=== PATIENT | female | born 1945 | race Caucasian/White ===

== ENCOUNTER 2019-07-28 11:34 | Inpatient (IN) | payer MEDICARE, OTHER ==
[~2019-07-28] VITALS: Ht 165.1 cm; Wt 71.2 kg
--- OUTSIDE RECORDS SUMMARY | ~2019-07-28 | XMS | Clinical Summary ---
Demographics + + + | Address | [address] | | | [place] [address] | + + + | Home Phone | | + + + | Preferred Language | Unknown | + + + | Marital Status | | + + + | Congregation Affiliation | 1077 | + + + | Race | Unknown | + + + | Ethnic Group | Unknown | + + + Author + + + | Author | [facility] (Historical as of | | | 05-25-19) | + + + | Organization | [facility] (Historical as of | | | 05-25-19) | + + + | Address | Unknown | + + + | Phone | Unavailable | + + + Support + + + + + | Name | Relationship | Address | Phone | + + + + + | Reinaldo An | ECON | [address] | | | | | [place] | | | | | [address] | | + + + + + | Radha Diaz | ECON | Unknown | | + + + + + Care Team Providers + +------+ + | Care Boarding Machine Operator Name | Role | Phone | + +------+ + | Jorge Alberto London DO | PP | | + +------+ + Allergies + + + + + + | Active Allergy | Reactions | Severity | Noted | Comments | | | | | Date | | + + + + + + | Alendronate | Other (See Comments) | Medium | 12/11/19 | Muscle aches and | | | | | 14 | weakness bone pain | + + + + + + | Erythromycin | Rash | Medium | 08/23/20 | | | | | | 17 | | + + + + + + | Lisinopril | Other (See Comments) | Medium | 01/07/20 | Unknown reaction | | | | | 12 | | + + + + + + | Lovastatin | Other (See Comments) | Medium | 01/07/20 | Unknown reactions, | | | | | 12 | Takes pravastatin | | | | | | at home | + + + + + + | Penicillins | Other (See Comments) | High | 01/07/20 | Unknown reaction | | | | | 12 | 10/19/17 patient | | | | | | tolerates cefazolin | + + + + + + | Beclomethasone | Shortness of Breath | High | 11/19/19 | | | | | | 15 | | + + + + + + | Tiotropium Newman | Anaphylaxis | High | 12/11/19 | | | Monohydrate | | | 14 | | + + + + + + | Budesonide-Formotero | Anaphylaxis | High | 12/11/19 | | | l Fumarate | | | 14 | | + + + + + + Current Medications + + +--------+---------+------+------+-------+ | Prescription | Sig. | Disp. | Refills | Star | End | Statu | | | | | | t | Date | s | | | | | | Date | | | + + +--------+---------+------+------+-------+ | travoprost | Place 1 drop into | | | | | Activ | | (TRAVATAN) 0.004 % | the right eye | | | | | e | | ophthalmic solution | nightly. | | | | | | + + +--------+---------+------+------+-------+ | levothyroxine | Take 100 mcg by | | | | | Activ | | (SYNTHROID, | mouth daily. | | | | | e | | LEVOTHROID) 100 MCG | | | | | | | | tablet | | | | | | | + + +--------+---------+------+------+-------+ | aspirin 81 MG EC | Take 81 mg by mouth | | | | | Activ | | tablet | daily with | | | | | e | | | breakfast. | | | | | | + + +--------+---------+------+------+-------+ | Multiple Vitamin | Take 1 tablet by | | | | | Activ | | (MULTIVITAMIN) | mouth daily. | | | | | e | | tablet | | | | | | | + + +--------+---------+------+------+-------+ | albuterol (PROAIR | Inhale 2 puffs into | | | | | Activ | | HFA) 108 (90 BASE) | the lungs every 4 | | | | | e | | MCG/ACT inhaler | (four) hours as | | | | | | | | needed. | | | | | | + + +--------+---------+------+------+-------+ | acetaminophen | Take 500 mg by mouth | | | | | Activ | | (TYLENOL) 500 MG | every 6 (six) hours | | | | | e | | tablet | as needed. | | | | | | + + +--------+---------+------+------+-------+ | albuterol | Take 2.5 mg by | | | | | Activ | | (PROVENTIL) (2.5 | nebulization every 6 | | | | | e | | MG/3ML) 0.083% | (six) hours as | | | | | | | nebulizer solution | needed for Wheezing. | | | | | | + + +--------+---------+------+------+-------+ | fluticasone | Inhale 1 puff into | | | | | Activ | | (FLOVENT HFA) 220 | the lungs 2 (two) | | | | | e | | MCG/ACT inhaler | times daily. Rinse | | | | | | | | mouth after use | | | | | | + + +--------+---------+------+------+-------+ | triamcinolone | Apply 0.1 % | | | | | Activ | | (KENALOG) 0.5 % | topically as needed. | | | | | e | | cream | | | | | | | + + +--------+---------+------+------+-------+ | pseudoephedrine | Take 30 mg by mouth | | | | | Activ | | (SUDAFED) 30 MG | every 6 (six) hours | | | | | e | | tablet | as needed for | | | | | | | | Congestion. | | | | | | + + +--------+---------+------+------+-------+ | Cholecalciferol | Take 1,000 Units by | | | | | Activ | | 1000 UNITS capsule | mouth daily. | | | | | e | + + +--------+---------+------+------+-------+ | estradiol | Place 2 mg vaginally | | | | | Activ | | (ESTRING) 2 MG | every 3 (three) | | | | | e | | vaginal ring | months. follow | | | | | | | | package directions | | | | | | + + +--------+---------+------+------+-------+ | Garlic 1000 MG | Take 2,000 mg by | | | | | Activ | | CAPS | mouth. | | | | | e | + + +--------+---------+------+------+-------+ | Coenzyme Q10 100 | Take 100 mg by mouth | | | | | Activ | | MG TABS | daily. | | | | | e | + + +--------+---------+------+------+-------+ | diphenhydrAMINE | Take 25 mg by mouth | | | | | Activ | | (BENADRYL) 25 mg | every 6 (six) hours | | | | | e | | capsule | as needed for | | | | | | | | Itching. | | | | | | + + +--------+---------+------+------+-------+ | ferrous sulfate, | Take 65 mg of iron | | | | | Activ | | 65 FE, 324 (65 Fe) | by mouth daily with | | | | | e | | MG EC tablet | breakfast. | | | | | | + + +--------+---------+------+------+-------+ | guaifenesin | Take 1,200 mg by | | | | | Activ | | (MUCINEX MAX) 1200 | mouth as needed. | | | | | e | | MG 12hr tablet | | | | | | | + + +--------+---------+------+------+-------+ | losartan (COZAAR) | Take 1 tablet by | 90 | 1 | 11/2 | | Activ | | 100 MG tablet | mouth daily for 60 | tablet | | 4/20 | | e | | | days. | | | 18 | | | + + +--------+---------+------+------+-------+ | amLODIPine | Take 1 tablet by | 30 | 2 | 11/2 | 11/2 | Activ | | (NORVASC) 10 MG | mouth daily. | tablet | | 5/20 | 5/20 | e | | tablet | | | | 18 | 19 | | + + +--------+---------+------+------+-------+ | | Take 1 tablet by | 21 | 0 | 11/2 | | Activ | | oxyCODONE-acetaminop | mouth every 4 (four) | tablet | | 4/20 | | e | | hen (PERCOCET) 5-325 | hours as needed for | | | 18 | | | | MG per tablet | Pain. | | | | | | + + +--------+---------+------+------+-------+ | TRAVATAN Z 0.004 % | | | | 10/2 | | Activ | | ophthalmic solution | | | | 06/28 | | e | | | | | | 18 | | | + + +--------+---------+------+------+-------+ | metoprolol | Take 1 tablet by | 90 | 2 | 11/09 | | Activ | | (TOPROL-XL) 50 MG 24 | mouth daily. | tablet | | 4/20 | | e | | hr tablet | | | | 19 | | | + + +--------+---------+------+------+-------+ | isosorbide | Take 1 tablet by | 90 | 3 | /1 | 04 | Activ | | mononitrate (IMDUR) | mouth daily. | tablet | | 6/20 | 5/20 | e | | 30 MG 24 hr tablet | | | | 19 | 20 | | + + +--------+---------+------+------+-------+ | clopidogrel | TAKE 1 TABLET BY | 90 | 3 | 05/0 | | Activ | | (PLAVIX) 75 MG | MOUTH ONCE DAILY | tablet | | 1/20 | | e | | tablet | | | | 19 | | | + + +--------+---------+------+------+-------+ | | TAKE 1 TABLET BY | 90 | 3 | 05/3 | | Activ | | hydrochlorothiazide | MOUTH ONCE DAILY | tablet | | 0/20 | | e | | (HYDRODIURIL) 12.5 | | | | 19 | | | | MG tablet | | | | | | | + + +--------+---------+------+------+-------+ | pravastatin | TAKE 1 TABLET BY | 90 | 3 | 06/0 | | Activ | | (PRAVACHOL) 20 MG | MOUTH ONCE NIGHTLY | tablet | | 5/20 | | e | | tablet | | | | 19 | | | + + +--------+---------+------+------+-------+ Active Problems + + + | Problem | Noted Date | + + + | TIA (transient ischemic attack) | 08/27/2018 | + + + | Acquired hypothyroidism | 10/20/2017 | + + + | 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) | 10/20/2017 | + + + | Coronary artery disease involving hoh coronary artery of | 10/17/2017 | | hoh heart without angina pectoris | | + + + + + | Overview: Added automatically from request for surgery [id number] | + + + + + | Carotid stenosis | 02/09/2016 | + + + | Peripheral vascular disease (HCC) | 12/25/2013 | + + + | Aorto-iliac atherosclerosis (HCC) | 12/25/2013 | + + + | Anemia of other chronic disease | 01/17/2012 | + + + | Microscopic hematuria | 01/07/2012 | + + + | Hypertension | | + + + | Hyperlipidemia | | + + + | Thyroid disease | | + + + | Glaucoma | | + + + | COPD (chronic obstructive pulmonary disease) | | + + + | Old myocardial infarction | | + + + | APURVA on CPAP | | + + + Resolved Problems + + + + | Problem | Noted | Resolved | | | Date | Date | + + + + | Hyponatremia | 08/31/20 | | | | 18 | 9 | + + + + | Abnormal stress test | 12/26/19 | | | | 14 | 8 | + + + + | Hypoxemia | 01/15/20 | | | | 12 | 7 | + + + + | ARDS (adult respiratory distress syndrome) | 01/07/20 | | | | 12 | 7 | + + + + | Acute respiratory failure (HCC) | 01/07/20 | | | | 12 | 2 | + + + + | Hyperkalemia | 01/07/20 | | | | 12 | 6 | + + + + | Leukocytosis, unspecified | 01/07/20 | | | | 12 | 7 | + + + + | Elevated liver enzymes | 01/07/20 | | | | 12 | 7 | + + + + Immunizations + + + + | Name | Dates Previously Given | Next Due | + + + + | INFLUENZA PF, | 07/23/2015 | | | QUADRIVALENT | | | | (PED/ADOL/ADULT) | | | + + + + | INFLUENZA, PF | 07/24/2017, 07/25/2016 | | | TRIVALENT HIGH DOSE | | | | 65 YRS OR > | | | + + + + | Influenza, PF | 06/23/2014, 07/23/2013 | | | Recombinant, | | | | Trivalent (Flublok) | | | + + + + | Influenza, PF | 06/23/2014, 07/23/2013 | | | Trivalent | | | + + + + | Pneumococcal | 07/23/2015 | | | Conjugate 13-valent | | | + + + + | Pneumococcal | 10/09/2010 | | | Polysaccharide | | | | 23-valent | | | + + + + | Tdap | 06/23/2014 | | + + + + Family History + + +------+ + | Medical History | Relation | Name | Comments | + + +------+ + | Cancer | Father | | | + + +------+ + | Hypertension | Father | | | + + +------+ + | Heart disease | Mother | | | + + +------+ + | Hypertension | Mother | | | + + +------+ + | Heart disease | Sister | | | + + +------+ + | Malig hypertherm | Neg Hx | | | + + +------+ + + +------+ + + | Relation | Name | Status | Comments | + +------+ + + | Father | | | | + +------+ + + | Mother | | | | + +------+ + + | Sister | | Alive | | + +------+ + + Social History + + + +--------+ + | Tobacco Use | Types | Packs/Day | Years | Date | | | | | Used | | + + + +--------+ + | Former Smoker | Cigarettes | 1 | 40 | Quit: 01/01/2012 | + + + +--------+ + + +---+---+---+ | Smokeless Tobacco: | | | | | Former User | | | | + +---+---+---+ + + +---------+ + | Alcohol Use | Drinks/We | oz/Week | Comments | | | ek | | | + + +---------+ + | No | | | rarely | + + +---------+ + + + + | Sex Assigned at | Date Recorded | | | | + + + | Not on file | | + + + Last Filed Vital Signs + + + + | Vital Sign | Reading | Time Taken | + + + + | Blood Pressure | 176/76 | 03/20/2019 12:54 PM PDT | + + + + | Pulse | 63 | 03/20/2019 12:54 PM PDT | + + + + | Temperature | 36.7 C (98 F) | 09/01/2018 7:48 AM PST | + + + + | Respiratory Rate | 20 | 09/01/2018 7:48 AM PST | + + + + | Oxygen Saturation | 97% | 03/20/2019 12:54 PM PDT | + + + + | Inhaled Oxygen | - | - | | Concentration | | | + + + + | Weight | 72.3 kg (159 lb 6.4 | 01/22/2019 2:05 PM PDT | | | oz) | | + + + + | Height | 165.1 cm (5' 5") | 01/22/2019 2:05 PM PDT | + + + + | Body Mass Index | 26.53 | 01/22/2019 2:05 PM PDT | + + + + Plan of Treatment + + + + + | Health Maintenance | Due Date | Last Done | Comments | + + + + + | Breast Cancer | | | | | Screening | 5 | | | | (Mammogram) | | | | + + + + + | Colon Cancer | | | | | Screening | 5 | | | | (Colonoscopy) | | | | + + + + + | Vaccine: Zoster (1 | | | | | of 2) | 5 | | | + + + + + | DEXA SCAN SCREENING | | | | | | 0 | | | + + + + + | Lung Cancer | | 01/06/2012 | | | Screening | 3 | | | + + + + + | Vaccine: Influenza | | 07/24/2017, 07/25/2016, | | | (#1) | 9 | 07/23/2015, Additional history | | | | | exists | | + + + + + | Vaccine: | | 06/23/2014 | | | Dtap/Tdap/Td (2 - | 4 | | | | Td) | | | | + + + + + | Vaccine: | Completed | 07/23/2015, 10/09/2010 | | | Pneumococcal 65+ | | | | | Low/Medium Risk | | | | + + + + + Implants + +------+------+ +--------+--------+--------+ | Implanted | Type | Area | Manufacture | Device | Expira | Model | | | | | r | | tion | / | | | | | | Identi | Date | Serial | | | | | | fier | | / Lot | + +------+------+ +--------+--------+--------+ | Xgrft Vascu-Guard [facility] 0.8x8 | | | MONIKA | | 02/14/ | VG-[id number] | | - [id number]: Qty: 1 | | | BIOSCIENCE | | 3 | 8N / | | on 08/28/2018 by Delon Bey | | | - EDDA | | | /[id number] | | MD Chun | | | | | | 22-132 | | | | | | | | [phone] | + +------+------+ +--------+--------+--------+ Results Not on filefrom Last 3 Months Insurance + +--------+ +------+-------+ + | Payer | Benefi | Subscriber | Type | Phone | Address | | | t Plan | ID | | | | | | / | | | | | | | Group | | | | | + +--------+ +------+-------+ + | MEDICARE | MEDICA | [id number] | | | [address] | | | RE | | | | [place], [place] [address] | | | IP-OP | | | | | + +--------+ +------+-------+ + | COMMERCIAL OTHER | COMMER | [id number] | | | | | | CIAL | | | | | | | GENERI | | | | | | | C PLAN | | | | | + +--------+ +------+-------+ + + +--------+ +--------+ + + | Guarantor Name | Accoun | Relation to | Date | Phone | Billing Address | | | t Type | Patient | of | | | | | | | | | | + +--------+ +--------+ + + | ODALIS AN | Person | Self [birth year] | Home: | [address] | | | al/Fam | | 1945 | [phone] [place] | | | [place] | | [phone] | + +--------+ +--------+ + +
--- OUTSIDE RECORDS SUMMARY | ~2019-07-28 | XMS | Encounter Summary ---
Demographics + + + | Address | [address] | | | [place] [address] | + + + | Home Phone | | + + + | Preferred Language | Unknown | + + + | Marital Status | | + + + | Yazdanism Affiliation | Unknown | + + + | Race | White | + + + | Ethnic Group | Not or | + + + Author + + + | Author | [facility] | + + + | Organization | [facility] | + + + | Address | Unknown | + + + | Phone | Unavailable | + + + Support + + +---------+ + | Name | Relationship | Address | Phone | + + +---------+ + | Reinaldo Wynne | ECON | Unknown | | + + +---------+ + | None None | ECON | Unknown | Unavailable | + + +---------+ + Care Team Providers + +------+ + | Care Sample Case Porter Name | Role | Phone | + +------+ + PCP | Unavailable | + +------+ + Encounter Details +--------+ + + + + | Date | Type | Department | Care Team | Description | +--------+ + + + + | 04/06/ | Staff Occupational Therapist | [facility] | Daniel Carbajal | | | 2005 | | [facility] | G | | | | | [address] | | | | | | [address] | | | | | | Mailcode: [place] | | | | | | [place], [place] | | | | | | [address] | | | | | | [phone] | | | +--------+ + + + + Social History + +-------+ +--------+------+ | Tobacco Use | Types | Packs/Day | Years | Date | | | | | Used | | + +-------+ +--------+------+ | Never Assessed | | | | | + +-------+ +--------+------+ + + + | Sex Assigned at | Date Recorded | | | | + + + | Not on file | | + + + + + + + | Job Start Date | Occupation | Industry | + + + + | Not on file | Not on file | Not on file | + + + + + + + + | Travel History | Travel Start | Travel End | + + + + + + | No recent travel history available. | + + documented as of this encounter Plan of Treatment Not on filedocumented as of this encounter Visit Diagnoses Not on filedocumented in this encounter"
--- OUTSIDE RECORDS SUMMARY | ~2019-07-28 | XMS | Encounter Summary ---
Demographics + + + | Address | [address] | | | [place] [address] | + + + | Home Phone | | + + + | Preferred Language | Unknown | + + + | Marital Status | | + + + | Episcopalian Affiliation | Unknown | + + + | Race | White | + + + | Ethnic Group | Not or | + + + Author + + + | Author | [facility] | + + + | Organization | [facility] | + + + | Address [...] Team Providers + +------+ + | Care Cinder Snapper Name | Role | Phone | + +------+ + PCP | Unavailable | + +------+ + Reason for Visit + + + | Reason | Comments | + + + | Postoperative visit | | + + + Encounter Details +--------+---------+ + + + | Date | Type | Department | Care Team | Description | +--------+---------+ + + + | 04/07/ | Office | [facility] | Elie Truong | Macular Cyst, Hole, | | 2005 | Visit | [facility] at | [address] | or Pseudohole of | | | | [address] | [facility], | Retina (Primary Dx) | | | | [address] | [place] [address] | | | | | Mailcode: [facility] | [phone] | | | | | [place], [place] | | | | | | [address] | | | | | | [phone] | | | +--------+---------+ + + + Social History + +-------+ [...] + + documented as of this encounter Progress Notes Alvina Francisco - 04/07/2006 8:17 AM PDTBeverly Sanjiv Wynne is a 60 y.o female s/p ppv/mp/14% sf6 OS 04/06/06 pt states no signiof pain-took only 1 vicodin. ate/slept well. presented with patch and s hield--removed. +head down positioning. brought in PF/ocuflox. disp atropine--review and disp instructions. VAsc LE CF@2' LE 23 myd@8.10 External: ecchymosis and swelling Slit lamp examination: Conj: closed Cornea: 1+ edema AC: mild cell and flare, well-formed Lens: Phakic Dilated Fundus Exam: Disc: perfused Macula: attached Vessels: normal Periphery: attatched and 70% gas fill Vitreous: avitric IMP: Doing well at 1 day postop. visit, ppv/mp/gas right eye retina attached; no elevated IOP or hypotony PLAN: Post operative Medications left eye: Prednisolone Acetate 1% ophth sups 4 x/day Atropine 2 x/day Vigamox 4 x/day Vicodin q 4-6hr prn pain Eyeshield at night for 1 wk. No strenuous activity for 1 wk Positioning: face down Do not lie on back Do not get in airplane or travel above 2000ft Return to clinic in 1 wk(s). Call immediately for increased pain, redness, light sensitivity or reduced vision. Post op instruction sheet given. Daniel Carbajal MD, PhD Retina Fellow, [facility] 04/07/2006 documented in this en counter Plan of Treatment Not on filedocumented as of this encounter Visit Diagnoses + + | Diagnosis | + + | Macular cyst, hole, or pseudohole of retina - Primary | + + documented in this encounter"
--- OUTSIDE RECORDS SUMMARY | ~2019-07-28 | XMS | Encounter Summary ---
Demographics + + + | Address | [address] | | | [place] [address] | + + + | Home Phone | | + + + | Preferred Language | Unknown | + + + | Marital Status | | + + + | Baptist Affiliation | Unknown | + + + | Race | White | + + + | Ethnic Group | Not or | + + + Author + + + | Author | [facility] | + + + | Organization | [facility] | + + + | Address | [...] Team Providers + +------+ + | Care Sales Porter Name | Role | Phone | + +------+ + PCP | Unavailable | + +------+ + Reason for Visit + + + | Reason | Comments | + + + | Eye examination | | + + + Encounter Details +--------+---------+ + + + | Date | Type | Department | Care Team | Description | +--------+---------+ + + + | 02/01/ | Office | [facility] | | Macular Cyst, Hole, | | 2006 | Visit | [place] | | or Pseudohole of | | | | Photography at | | Retina | | | | [address] | | | | | | [address] | | | | | | Mailcode: [place] | | | | | | [place], [place] | | | | | | [address] | | | | | | [phone] | | | +--------+---------+ + + + [...] + documented as of this encounter Progress Roz Wilson - 02/01/2006 1:43 PM PDTBevergianfranco Wynne was seen in the [facility] Photography Department today, 02/01/2006, for OCT. documented in this enco unter Plan of Treatment Not on filedocumented as of this encounter Visit Diagnoses + + | Diagnosis | + + | Macular cyst, hole, or pseudohole of retina | + + documented in this encounter"
--- OUTSIDE RECORDS SUMMARY | ~2019-07-28 | XMS | Encounter Summary ---
Demographics + + + | Address | [address] | | | [place] [address] | + + + | Home Phone | | + + + | Preferred Language | Unknown | + + + | Marital Status | | + + + | Christian Affiliation | 1077 | + + + | Race | Unknown | + + + | Ethnic Group | Unknown | + + + Author + + + | Author | [facility] | | | and [place] | + + + | Organization | [facility] | | | and [place] | + + + | Address | Unknown | + + + | Phone | Unavailable | + + + Support + + + + + | Name | Relationship | Address | Phone | + + + + + | Reinaldo Wynne | ECON | [address] | | | | | [place] | | | | | [address] | | + + + + + | Radha Diaz | ECON | Unknown | | + + + + + Care Team Providers + +------+ + | Care Electronic Technologist Name | Role | Phone | + +------+ + | Vladimir Fischer | PCP | | | MD | | | + +------+ + Reason for Referral Evaluate & Treat (Routine) + + + + + + + | Status | Reason | Specialty | Diagnoses / | Referred By | Referred To | | | | | Procedures | Contact | Contact | + + + + + + + | Authorized | Specialty | Sleep | Diagnoses | Ashley Barajas | Cristino | | | Services | Medicine | APURVA on CPAP | MD Eric | Reinaldo Elder | | | Required | | | [address] | MD Emre [address] | | | | | | [address] | [place] | | | | | | [place], | [place] | | | | | | [place] [address] | [place] | | | | | | Phone: | [phone] Phone: | | | | | | [phone] | [phone] | | | | | | Fax: | Fax: | | | | | | [phone] | [phone] | + + + + + + + Reason for Visit + + + | Reason | Comments | + + + | Follow-up | yrly f/u/asthma | + + + Follow Up (Routine) + +--------+ + + + + | Status | Reason | Specialty | Diagnoses / | Referred By | Referred To | | | | | Procedures | Contact | Contact | + +--------+ + + + + | Authorized | | Pulmonary | Diagnoses | Aaliyah, | Ashley Barajas | | | | Disease / | Chronic | Vladimir | MD Eric | | | | Pulmonology | obstructive | MD Patel | [address] | | | | | pulmonary | [address] | [facility] | | | | | disease, | [address] | [place], [place] | | | | | unspecified | [place], | [address] Phone: | | | | | ([facility]) | [place] | [phone] | | | | | Procedures | [address] | Fax: | | | | | F/U APPT | Phone: | [phone] | | | | | W/JASON KEENE | [phone] | | | | | | MARELY | Fax: | | | | | | | [phone] | | + +--------+ + + + + Encounter Details +--------+---------+ + + + | Date | Type | Department | Care Team | Description | +--------+---------+ + + + | 06/27/ | Office | [facility] | Ashley Barajas | Mild persistent | | 2019 | Visit | PULMONARY [address] | MD Eric [address] | asthma, unspecified | | | | [place], | [address] [place] | whether complicated | | | | [place] [address] | [facility] [address] | (Primary Dx); | | | | [phone] | [phone] | Seasonal allergic | | | | | | rhinitis, | | | | | | unspecified trigger; | | | | | | APURVA on CPAP | +--------+---------+ + + + Social History + + + +--------+ + | Tobacco Use | Types | Packs/Day | Years | Date | | | | | Used | | + + + +--------+ + | Former Smoker | Cigarettes | 1 | 46 | 04/15/1964 - | | | | | | 12/28/2011 | + + + +--------+ + + +---+---+---+ | Smokeless Tobacco: | | | | | Never Used | | | | + +---+---+---+ + + +---------+ + | Alcohol Use | Drinks/We | oz/Week | Comments | | | ek | | | + + +---------+ + | Yes | 0 | 0.0 | Alcoholic Drinks/day: rarely | | | Standard | | | | | drinks or | | | | | | | | | | equivalen | | | | | t | | | + + +---------+ + + + [...] + + documented as of this encounter Last Filed Vital Signs + + + + | Vital Sign | Reading | Time Taken | + + + + | Blood Pressure | 122/60 | 06/27/20191438 PDT | + + + + | Pulse | 60 | 06/27/20191438 PDT | + + + + | Temperature | - | - | + + + + | Respiratory Rate | - | - | + + + + | Oxygen Saturation | 96% | 06/27/20191438 PDT | + + + + | Inhaled Oxygen | - | - | | Concentration | | | + + + + | Weight | 74.2 kg (163 lb 9.3 | 06/27/20191438 PDT | | | oz) | | + + + + | Height | 165.1 cm (5' 5") | 06/27/20191438 PDT | + + + + | Body Mass Index | 27.22 | 06/27/2019 1439 PDT | + + + + documented in this encounter Patient Instructions Patient Instructions Ashley Barajas MD - 06/27/2019 14:45 PDT Chronic Lung Disease: Preventing Lung Infections Chronic lung diseases include chronic obstructive pulmonary disease (COPD), which includes chronic bronchitis and emphysema. Other chronic lung diseases include pulmonary fibrosis, sa rcoidosis, and other conditions. When you have chronic lung diseases, it's very important to protect yourself from respiratory infections, like colds, the flu, and lung infections. Inf ections may cause your lung condition to worsen. Although you can't completely avoid them, t here are things you can do to lessen the chance of infections. Take precautions Taking the following precautions can help you avoid illness: Remember to keep your hands away from your nose and mouth. Germs on your hands get into your respiratory system this way. Wash your hands often. When you wash them: ? Use soap and warm water. ? Rub your hands together well for at least 20 seconds. ? Make sure to rinse them well. ? Dry your hands on clean towels or air-dry them. Use hand supervisor grounds containing alcohol, if you are unable to wash your hands. Use the del valle itizer after touching doorknobs, handles, and supermarket carts, for example, since lots of people touch them. Then wash your hands as soon as you can. To help prevent the flu, get a flu vaccination every year. This may be given at your [facility] provider's office, a drugstore, or pharmacy, or at work. Get your flu shot as soon a s the vaccines are available in your area. This is usually around June each year. To help prevent pneumococcal pneumonia, get pneumonia vaccinations. Talk with your [facility] provider about which pneumococcal vaccinations you need. Try to stay away from people with respiratory infections, such as colds or the flu. Stay away from crowded places, like shopping centers or movie theatres during cold and flu seaso n. If you smoke, think about quitting. In addition to causing or worsening many lung condit ions, the lung damage from smoking increases your risk of infections. Stay away from others who smoke, too. This is also harmful and increases your chance of infections. Date Last Reviewed: 01/21/201619993019-6895 [employer]. [address] [place] [address], [place] [address]. All righ ts reserved. This information is not intended as a substitute for professional medical care. Always follow your healthcare professional's instructions. documented in this encounter Progress Notes Ashley Barajas MD - 06/27/2019 1445 PDT Subjective: Alka Wynne is a 74 y.o. female who presents to the clinic with a chief complaint of Follow-up (yrly f/u/asthma) HPI 74 year old female with mild persistent asthma, ARDS survivor, CAD s/pt CABG in 2018, CVA i n 2018, APURVA on cpap who presents for follow up of asthma. - Briefly, patient had viral pneumonia in 2011. Hospital course was complicated by respirat ory failure requiring mechanical ventilation and ARDS. - Patient overall feels that her breathing is good. - She does get SOB when walking up hills. She rarely coughs, occasionally wheezes. - No nighttime symptoms. No asthma attacks or hospitalizations. - For her regimen, she takes flovent BID and albuterol about once daily. She does have albu terol nebs at home, but only takes this when needed. - No orthopnea or peripheral edema. - For her allergic rhinitis, cetirizine, benadryl and saline sinuses rinses to control her symptoms. - Patient is a former smoker and quit in 2011. She previously smoked 1 ppd. - With regards to her APURVA, she is intermittently compliant with CPAP use. At times she fall s asleep in her recliner without her cpap on, but states that this is happening less frequen tly. - Smart card download reviewed. 23% days use, average AHI 2.3. Patient's medications, allergies, past medical, surgical, social and family histories were obtained and reviewed as appropriate. Review of Systems Constitutional: Negative for chills, fever and unexpected weight change. HENT: Negative for postnasal drip and sinus pain. Eyes: Negative for pain and itching. Respiratory: Negative for cough, shortness of breath and wheezing. Cardiovascular: Negative for chest pain and leg swelling. Gastrointestinal: Negative for abdominal pain, constipation, diarrhea, nausea and vomiting. Endocrine: Negative for cold intolerance and heat intolerance. Genitourinary: Negative for dysuria, frequency and urgency. Musculoskeletal: Negative for arthralgias and back pain. Skin: Negative for color change and pallor. Allergic/Immunologic: Negative for environmental allergies and food allergies. Neurological: Negative for dizziness and headaches. Psychiatric/Behavioral: Negative for agitation and behavioral problems. Objective: Vitals: 06/27/19 1439 BP: 122/60 Pulse: 60 PainSc: 0 - No pain Physical Exam Constitutional: She is oriented to person, place, and time. She appears well-developed and well-nourished. No distress. HENT: Head: Normocephalic and atraumatic. Right Ear: External ear normal. Left Ear: External ear normal. Nose: Nose normal. Mouth/Throat: Oropharynx is clear and moist. Eyes: Pupils are equal, round, and reactive to light. EOM are normal. Neck: Neck supple. No tracheal deviation present. No thyromegaly present. Cardiovascular: Normal rate, regular rhythm and normal heart sounds. Exam reveals no gallop and no friction rub. No murmur heard. Pulmonary/Chest: Effort normal and breath sounds normal. No respiratory distress. She has n o wheezes. She has no rales. Abdominal: Soft. Bowel sounds are normal. She exhibits no distension. There is no tendernes s. Musculoskeletal: She exhibits no edema or deformity. Lymphadenopathy: She has no cervical adenopathy. Neurological: She is alert and oriented to person, place, and time. No cranial nerve defici t. Skin: Skin is warm and dry. Psychiatric: She has a normal mood and affect. Her behavior is normal. Assessment & Plan: 1. Mild persistent asthma, unspecified whether complicated 2. Seasonal allergic rhinitis, unspecified trigger 3. APURVA on CPAP AMB REFERRAL TO [facility] [place] [facility] - Symptoms are well controlled on flovent BID and albuterol PRN. - Continue antihistamine and sinus rinses. - Referral to sleep clinic to establish care for ongoing management of APURVA. - Flu shot offered to patient today. She would like to defer the flu shot so she can get it with her . See AVS for patient instructions. Diagnosis and plan including medications and side effects were discussed with the patient a nd information handout was given. Patient voices understanding of the plan and all questions were answered. Return in about 1 year (around 06/27/2020). documented in this encounter Plan of Treatment +--------+---------+ + + + | Date | Type | Specialty | Care Team | Description | +--------+---------+ + + + | 10/22/ | Office | Sleep Medicine | Reinaldo Gregg | | | 2019 | Visit | | MD Emre [address] | | | | | | [place] | | | | | | [place] [address] | | | | | | [phone] | | | | | | | | +--------+---------+ + + + + +--------+ + + | Name | Priori | Associated Diagnoses | Order Schedule | | | ty | | | + +--------+ + + | AMB REFERRAL TO [facility] | Routin | APURVA on CPAP | Ordered: 06/27/2019 | | SLEEP DIS[facility] | e | | | + +--------+ + + documented as of this encounter Visit Diagnoses + + | Diagnosis | + + | Mild persistent asthma, unspecified whether complicated - Primary | + + | Seasonal allergic rhinitis, unspecified trigger | + + | APURVA on CPAP Obstructive sleep apnea (adult) (pediatric) | + + documented in this encounter
--- OUTSIDE RECORDS SUMMARY | ~2019-07-28 | XMS | Encounter Summary ---
Demographics + + + | Address | [address] | | | [place] [address] | + + + | Home Phone | | + + + | Preferred Language | Unknown | + + + | Marital Status | | + + + | Muslim Affiliation | Unknown | + + + | Race | White | + + + | Ethnic Group | Not or | + + + Author + + + | Author | [facility] | + + + | Organization | [facility] | + + + | Address [...] Team Providers + +------+ + | Care Nuclear Process Engineer Name | Role | Phone | + +------+ + | Rad London DO | PCP | | + +------+ + Encounter Details +--------+ + + + + | Date | Type | Department | Care Team | Description | +--------+ + + + + | 02/01/ | Ancillary | Registration [id number] | Elie Truong | | | 2005 | Registratio | [facility] | MD Michael [address] | | | | n | [address]code: [address] | [place], | | | | | [place], [place] | [place] [address] | | | | | [address] | [phone] | | | | | [phone] | | | +--------+ + + + [...]
--- OUTSIDE RECORDS SUMMARY | ~2019-07-28 | XMS | Encounter Summary ---
Demographics + + + | Address | [address] | | | [place] [address] | + + + | Home Phone | | + + + | Preferred Language | Unknown | + + + | Marital Status | | + + + | Denominational Affiliation | Unknown | + + + | Race | White | + + + | Ethnic Group | Not or | + + + Author + + + | Author | [facility] | + + + | Organization | [facility] | + + + | Address | [...] Team Providers + +------+ + | Care Vp Of Global Marketing Name | Role | Phone | + +------+ + PCP | Unavailable | + +------+ + Encounter Details +--------+ + + + + | Date | Type | Department | Care Team | Description | +--------+ + + + + | 04/17/ | Telephone | [facility] | Daniel Carbajal | | | 2005 | | [facility] at | G | | | | | [address] | | | | | | [address] | | | | | | Mailcode: [place] | | | | | | [place], [place] | | | | | | [address] | | | | | | [phone] | | | +--------+ + + + [...]
--- OUTSIDE RECORDS SUMMARY | ~2019-07-28 | XMS | Encounter Summary ---
Demographics + + + | Address | [address] | | | [place] [address] | + + + | Home Phone | | + + + | Preferred Language | Unknown | + + + | Marital Status | | + + + | Samaritan Affiliation | Unknown | + + + | Race | White | + + + | Ethnic Group | Not or | + + + Author + + + | Author | [facility] | + + + | Organization | [facility] | + + + | Address | [...] Team Providers + +------+ + | Care Log Feeder Name | Role | Phone | + [...] Hole, | | 2006 | Visit | [facility] | | or Pseudohole of | | | | Photography at | | Retina | | | | [address] | | | | | | [address] | | | | | | Mailcode: [address] | | | | | | [place], [place] | | | | | | [address] | | | | | | [phone] | | | +--------+---------+ + + + [...] PM PDTBevergianfranco Wynne was seen in the [facility] Photography Department today, 02/01/2006, for OCT. documented in this enco unter Plan of Treatment Not on filedocumented as of this encounter Visit Diagnoses + + | Diagnosis | + + | Macular cyst, hole, or pseudohole of retina | + + documented in this encounter"
--- OUTSIDE RECORDS SUMMARY | ~2019-07-28 | XMS | Encounter Summary ---
Demographics + + + | Address | [address] | | | [place] [address] | + + + | Home Phone | | + + + | Preferred Language | Unknown | + + + | Marital Status | | + + + | Methodist Affiliation | Unknown | + + + | Race | White | + + + | Ethnic Group | Not or | + + + Author + + + | Organization | Unknown | + + + | Address | [...] Team Providers + +------+ + | Care Press Worker Helper Name | Role | Phone | + +------+ + PCP | Unavailable | + +------+ + Encounter Details +--------+ + + + + | Date | Type | Department | Care Team | Description | +--------+ + + + + | 04/06/ | Procedure - | | Record, Operation | Operative Report | | 2006 | | | | | | | Transcribed | | | | +--------+ + + + [...] Not on filedocumented as of this encounter Procedures + +--------+ + + + | Procedure Name | Priori | Date/Time | Associated Diagnosis | Comments | | | ty | | | | + +--------+ + + + | OPERATION RECORD | | 04/06/2006 | | Results for this | | | | | | procedure are in the | | | | | | results section. | + +--------+ + + + documented in this encounter Results OPERATION RECORD (04/06/2006) + + | Transcriptions | + + | Interface, Chargeback Analyst In - 04/21/2006 2:05 AM PDT | | [id number] | | [id number] [place] [id number] | | | | Date: 04/06/2006 | | | | Attending Surgeon: Iraida Truong M.D. | | | | Mitigation Supervisor(s): Daniel Carbajal M.D. | | | | Preoperative Diagnosis(es): | | Macular hole, left eye. | | | | Postoperative Diagnosis(es): | | Macular hole, left eye. | | | | Procedures Performed: | | 1. Pars plana vitrectomy with membrane segmentation. | | 2. Gas-fluid exchange (14% SF6 gas). | | | | | | Anesthesia: | | | | Complications: | | None. | | | | Estimated Blood Loss: | | Less than 1 cc. | | | | Specimens: | | None. | | | | Indications: | | Alka Wynne is a woman who has noted decreased vision in her left eye | | for quite some time. This was noted in the clinic to be the consequence of | | a macular hole. It was decided to repair this surgically. | | | | Procedure: | | After the obtainment of informed consent, the patient was taken to the | | operating room where retrobulbar anesthesia was obtained by delivering 4 mL | | of a 50:50 mixture of lidocaine and Marcaine into the retrobulbar space | | using an Torres needle. After the establishment of adequate anesthesia | | and akinesia, attention was directed towards the left eye where the patient | | was prepped and draped in the usual sterile fashion. A 23-gauge trocar | | system was placed inside the eye with trocars in the superotemporal, | | superonasal, and inferotemporal quadrants, 3.5 mm posterior to the limbus. | | Posterior infusion cannula was observed. The pupil was noted to be in the | | posterior cavity, so posterior infusion was turned on. A light pipe and | | microvitrector were placed inside the eye and were used to carry out a | | thorough pars plana vitrectomy. Indocyanine green dye was placed on the | | macula to stain the internal limiting membrane. Using the 25-gauge ILM | | forceps, an ILM rhexis was performed around the entire macular hole. The | | vitrector was placed back inside the eye and was used to clean up all | | remnants. A gas-fluid exchange was performed after binocular indirect | | ophthalmoscopy was performed, which revealed a nicely attached retina | | without holes, rips, tears, or traction. With the gas-filled eye, all | | trocars were removed; however, prior to removing the last trocar, the air | | inside the eye was exchanged for 14% SF6 gas. All sclerotomies were | | checked and were noted to be gas tight upon closure. The eye received | | subconjunctival injections of Zinacef and Decadron. Maxitrol was placed in | | the eye, and the eye was patched. The patient was taken from the operating | | room to the recovery room in stable condition. | | | | There was no qualified resident to assist me with the case. | | | | | | | | Iraida Truong M.D. | | | | JTS / HS | | [id number] / [id number] / [id number] / [id number] | | | | | | | | | | | | Electronically signed by Elie Truong 04-20-2006 04:43:10 PM | + + documented in this encounter Visit Diagnoses Not on filedocumented in this encounter"
--- OUTSIDE RECORDS SUMMARY | ~2019-07-28 | XMS | Encounter Summary ---
Demographics + + + | Address | [address] | | | [place] [address] | + + + | Home Phone | | + + + | Preferred Language | Unknown | + + + | Marital Status | | + + + | Church Affiliation | Unknown | + + + | Race | White | + + + | Ethnic Group | Not or | + + + Author + + + | Author | [facility] | + + + | Organization | [facility] | + + + | [...] Team Providers + +------+ + | Care Ophthalmic Aide Name | Role | Phone | + +------+ + PCP | Unavailable | + +------+ + Reason for Visit + + + | Reason | Comments | + + + | Consultation | | + + + Encounter Details +--------+---------+ + + + | Date | Type | Department | Care Team | Description | +--------+---------+ + + + | 02/01/ | Office | [facility] | Elie Truong | Macular Cyst, Hole, | | 2006 | Visit | [facility] at | [address] | or Pseud[address]ole of | | | | [address] | [address], | Retina (Primary Dx) | | | | [address] | [place] [address] | | | | | Mailcode: [facility] | [phone] | | | | | [place], [place] | | | | | | [address] | | | | | | [phone] | | | +--------+---------+ + + + [...] documented as of this encounter Progress Notes Daniel Carbajal - 02/01/2006 1:23 PM PDTFormatting of this note might be different fro m the original. History of Present Illness: Alka Wynne is a 60 y.o. female referred by eyad Rodríguez for a macular hole OS. 6 weeks ago she noticed a film over her left eye vision. 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 Mental Status: Oriented times three Examination: VAsc RE: / VAcc RE: 20/20 VAph RE: / VAsc LE: / VAcc LE: 20/60 VAph LE: / Intraocular Pressure: RE: 14 LE: 14 Method: Tonopen Time: 13:28 RE LE Pupils equal round and reactive to light; no APD equal round and reactive to light; no APD Motility ortho, full ROM ortho, full ROM CVF full full Patient dilated at 1:25 pm with cyclogyl 1% and neosynephrine 2.5% External OD normal, OS normal Slit lamp exam: RE LE Lids/Lacrimal/Tear: normal Conjunctiva: normal Cornea: epithelium intact, normal stromal thickness AC: deep and clear Iris: normal Lens: 1+ NS Lids/Lacrimal/Tear: normal Conjunctiva: normal Cornea: epithelium intact, normal stromal thickness AC: deep and clear Iris: normal Lens: 1+ NS Fundus Exam: RE LE Vitreous: normal Disc: CDR 0.3 Macula: normal Vessels: normal Periphery: normal Vitreous: normal Disc: CDR 0.3 Macula: full thicknesss hole with cuff of subretinal fluid Vessels: normal Periphery: normal Diagnostic Studies: 1) OCT OU shows central area 200 OD and 410 OS with a PVD OD and an operculated full thickn ess macular hole at the fovea with surrounding intraretinal fluid OS. Assessment and Plan: 1) FT OS PARQ for 25 gauge PPV/ICG/MP/gas OS We discussed the nature of her upcoming retina surgery, including the risks (bleeding, infe ction, need for further surgery, anesthesia risk), post-operative medications (perscription given), and what to expect in the post-operative period. If a gas bubble is used as planned , she will have strick positioning requirements for 1 week and need to stay below 2,000 ft e levation for approximately 1 month. She expressed good understanding of these points. Sanjiv Truong MD, PhD documented in this en counter Plan of Treatment + + +--------+ + + | Name | Type | Priori | Associated Diagnoses | Order Schedule | | | | ty | | | + + +--------+ + + | OPTICAL COHERENCE | Procedures | Routin | Macular Cyst, | Expected: 02/01/2006 | | TOMOGRAPHY | | e | Hole, or Pseudohole | | | | | | of Retina | | + + +--------+ + + | NV OPTHALMIC DX | Procedures | Routin | Macular Cyst, | Ordered: 02/01/2006 | | IMAGING | | e | Hole, or Pseudohole | | | | | | of Retina | | + + +--------+ + + | NV OPTHALMIC DX | Procedures | Routin | Macular Cyst, | Ordered: 02/01/2006 | | IMAGING | | e | Hole, or Pseudohole | | | | | | of Retina | | + + +--------+ + + documented as of this encounter Visit Diagnoses + + | Diagnosis | + + | Macular cyst, hole, or pseudohole of retina - Primary | + + documented in this encounter"
--- OUTSIDE RECORDS SUMMARY | ~2019-07-28 | XMS | Encounter Summary ---
Demographics + + + | Address | [address] | | | [place] [address] | + + + | Home Phone | | + + + | Preferred Language | Unknown | + + + | Marital Status | | + + + | Adventist Affiliation | Unknown | + + + [...] Team Providers + +------+ + | Care Mascara Molder Name | Role | Phone | + [...] | Transcriptions | + + | Interface, International Controller In - 04/21/2006 2:05 AM PDT | | [id number] | | [id number] NATALIYA Kincaid [id number] | | | | Date: 04/06/2006 | | | | Attending Surgeon: Iraida Truong M.D. | | | | Industrial Staff Nurse(s): Daniel Carbajal M.D. | | | | [...] | | JTS / HS | | [id number] / [id number] / [id number] / [id number] | | | | | | | | | | | | Electronically signed by Elie Truong 04-20-2006 04:43:10 PM | + + documented in this encounter Visit Diagnoses Not on filedocumented in this encounter"
--- OUTSIDE RECORDS SUMMARY | ~2019-07-28 | XMS | Encounter Summary ---
Demographics + + + | Address | [address] | | | [place] [address] | + + + | Home Phone | | + + + | Preferred Language | Unknown | + + + | Marital Status | | + + + | Catholic Affiliation | 1077 | + + + | Race | Unknown | + + + | Ethnic Group | Unknown | + + + Author + + + | Author | [facility] | | | and [place] | + + + | Organization | [facility] | | | and [place] | [...] [place] | | | | | [address] | | + + + + + | Radha Diaz | ECON | Unknown | | + + + + + Care Team Providers + +------+ + | Care Mold Clamper Name | Role | Phone | + +------+ + | Vladimir Fischer | CINTHYA | | | MD | | | + +------+ + Encounter Details +--------+ + + + + | Date | Type | Department | Care Team | Description | +--------+ + + + + | 05/13/ | Orders Only | [facility] | Provider, | Essential (primary) | | 2019 | | SYSTEM GENERIC OP | [address] | hypertension; | | | | CONVERSION [address] | [address] | Atherosclerotic | | | | [address] [place], [place] | [place] [address] | heart disease of | | | | [address] | | [place] coronary | | | | [phone] | | artery without | | | | | | angina pectoris; | | | | | | Occlusion and | | | | | | stenosis of | | | | | | bilateral carotid | | | | | | arteries; Peripheral | | | | | | vascular disease | | | | | | (HCC) | +--------+ + + + + Social History + + [...] as of this encounter Plan of Treatment +--------+---------+ + + + | Date | Type | Specialty | Care Team | Description | +--------+---------+ + + + | 10/22/ | Office | Sleep Medicine | Reinaldo Gregg | | | 2020 | Visit | | MD Emre [address] | | | | | | [address] | | | | | | [place] [address] | | | | | | [phone] | | | | | | | | +--------+---------+ + + + + +--------+ + + | Name | Priori | Associated Diagnoses | Order Schedule | | | ty | | | + +--------+ + + | CBC with Differential | Routin | Essential | Expected: | | | e | (primary) | 12/13/2018, Expires: | | | | hypertension | 07/16/2019 | | | | Atherosclerotic | | | | | heart disease of | | | | | [place] coronary | | | | | artery without | | | | | angina pectoris | | | | | Occlusion and | | | | | stenosis of | | | | | bilateral carotid | | | | | arteries Peripheral | | | | | vascular disease | | | | | (HCC) | | + +--------+ + + | Basic Metabolic Panel | Routin | Essential | Expected: | | | e | (primary) | 12/13/2018, Expires: | | | | hypertension | 07/16/2019 | | | | Atherosclerotic | | | | | heart disease of | | | | | [place] coronary | | | | | artery without | | | | | angina pectoris | | | | | Occlusion and | | | | | stenosis of | | | | | bilateral carotid | | | | | arteries Peripheral | | | | | vascular disease | | | | | (HCC) | | + +--------+ + + | Lipid Panel | Routin | Essential | Expected: | | | e | (primary) | 12/13/2018, Expires: | | | | hypertension | 07/16/2019 | | | | Atherosclerotic | | | | | heart disease of | | | | | [place] coronary | | | | | artery without | | | | | angina pectoris | | | | | Occlusion and | | | | | stenosis of | | | | | bilateral carotid | | | | | arteries Peripheral | | | | | vascular disease | | | | | (HCC) | | + +--------+ + + documented as of this encounter Visit Diagnoses + + | Diagnosis | + + | Essential (primary) hypertension Unspecified essential hypertension | + + | Atherosclerotic heart disease of [place] coronary artery without angina pectoris | | Coronary atherosclerosis of [place] coronary artery | + + | Occlusion and stenosis of bilateral carotid arteries | + + | Peripheral vascular disease (HCC) Peripheral vascular disease, unspecified | + + documented in this encounter"
--- OUTSIDE RECORDS SUMMARY | ~2019-07-28 | XMS | Encounter Summary ---
Demographics + + + | Address | [address] | | | [place] [address] | + + + | Home Phone | | + + + | Preferred Language | Unknown | + + + | Marital Status | | + + + | Anglican Affiliation | 1077 | + + + | Race | Unknown | + + + | Ethnic Group | Unknown | + + + Author + + + | Author | [facility] | | | and [place] | + + + | Organization | [facility] | | | and [place] | [...] [place] | | | | | [address] | | + + + + + | Radha Diaz | ECON | Unknown | | + + + + + Care Team Providers + +------+ + | Care Post Manager Name | Role | Phone | + +------+ + | Vladimir Fischer | CINTHYA | | | MD | | | + +------+ + Encounter Details +--------+ + + + + | Date | Type | Department | Care Team | Description | +--------+ + + + + | 05/13/ | Orders Only | [facility] | Provider, | Essential (primary) | | 2019 | | SYSTEM GENERIC OP | [address] | hypertension; | | | | CONVERSION [address] | [address]. | Atherosclerotic | | | | [address] [place], [place] | [place] [address] | heart disease of | | | | [address] | | [place] coronary | | | | [phone] | | artery without | | | [...] | Visit | | MD Emre [address] | | | | | | [address] | | | | | | [place] [address] | | | | | | [phone] | | | | | | | [...] disease of | | | | | [place] coronary | | | | | artery [...] disease of | | | | | [place] coronary | | | | | artery [...] disease of | | | | | [place] coronary | | | | | artery [...] + + | Atherosclerotic heart disease of [place] coronary artery without angina pectoris | | Coronary atherosclerosis of [place] coronary artery | + + | Occlusion and stenosis of bilateral carotid arteries | + + | Peripheral vascular disease (HCC) Peripheral vascular disease, unspecified | + + documented in this encounter"
--- OUTSIDE RECORDS SUMMARY | ~2019-07-28 | XMS | Clinical Summary ---
Demographics + + + | Address | [address] | | | [place] [address] | + + + | Home Phone | | + + + | Preferred Language | Unknown | + + + | Marital Status | | + + + | Jainism Affiliation | 1077 | + + + | Race | Unknown | + + + | Ethnic Group | Unknown | + + + Author + + + | Author | [facility] | | | and [place] | + + + | Organization | [facility] | | | and [place] | + + + | Address | Unknown | + + + | Phone | Unavailable | + + + Support + + + + + | Name | Relationship | Address | Phone | + + + + + | Reinaldo Wynne | ECON | [address] | | | | | [place] | | | | | [address] | | + + + + + | Radha Diaz | NIDHI | Unknown | | + + + + + Care Team Providers + +------+ + | Care Jewelry Model Maker Name | Role | Phone | + +------+ + | Vladimir Fischer | CINTHYA | | | MD | | | + +------+ + Allergies + + + + + + | Active Allergy | Reactions | Severity | Noted | Comments | | | | | Date | | + + + + + + | Alendronate Sodium | Other (See Comments) | Low | 05/13/20 | Myalgias | | | | | 14 | | + + + + + + | Beclomethasone | Shortness Of Breath | High | 10/07/20 | | | | | | 14 | | + + + + + + | Budesonide-Formotero | Hives, Rash | Low | 05/13/20 | | | l Fumarate | | | 14 | | + + + + + + | Erythromycin | Rash | Low | 08/23/20 | | | | | | 17 | | + + + + + + | Lisinopril | Hives, Rash | Low | //20 | | | | | | 14 | | + + + + + + | Mevacor | Other (See Comments) | Low | 05/13/20 | Unknown reaction | | | | | 14 | | + + + + + + | Penicillins | Hives, Rash | Low | /05/20 | | | | | | 14 | | + + + + + + | Tiotropium [place] | Hives, Rash | Low | 08/05/20 | | | Monohydrate | | | 14 | | + + + + + + Medications + + + +---------+------+------+-------+ | Medication | Sig | Dispensed | Refills | Star | End | Statu | | | | | | t | Date | s | | | | | | Date | | | + + + +---------+------+------+-------+ | guaiFENesin | Take 600 mg by mouth | | 0 | | | Activ | | (MUCINEX) 600 mg 12 | Twice daily as | | | | | e | | hr tablet | needed. | | | | | | + + + +---------+------+------+-------+ | albuterol 2.5 mg/3 | Take 2.5 mg by | | 0 | | | Activ | | mL nebulizer | nebulization every 6 | | | | | e | | solution | hours as needed. | | | | | | + + + +---------+------+------+-------+ | pseudoePHEDrine | Take 30 mg by mouth | | 0 | | | Activ | | (SUDAFED) 30 mg | every 4 hours as | | | | | e | | tablet | needed. | | | | | | + + + +---------+------+------+-------+ | | Take 12.5 mg by | | 0 | | | Activ | | hydrochlorothiazide | mouth Daily. | | | | | e | | (HYDRODIURIL) 12.5 | | | | | | | | MG tablet | | | | | | | + + + +---------+------+------+-------+ | levothyroxine | Take 100 mcg by | | 0 | | | Activ | | (SYNTHROID, | mouth every morning | | | | | e | | LEVOTHROID) 100 mcg | (before breakfast). | | | | | | | tablet | | | | | | | + + + +---------+------+------+-------+ | albuterol (PROAIR | Inhale 2 puffs into | | 0 | | | Activ | | HFA) 90 mcg/puff | the lungs every 6 | | | | | e | | inhaler | hours as needed. | | | | | | + + + +---------+------+------+-------+ | travoprost | Place 1 drop into | | 0 | | | Activ | | (TRAVATAN) 0.004% | both eyes nightly. | | | | | e | | ophthalmic solution | | | | | | | + + + +---------+------+------+-------+ | aspirin 81 MG | Take 81 mg by mouth | | 0 | | | Activ | | tablet | Daily. | | | | | e | + + + +---------+------+------+-------+ | FLOVENT HFA 220 | inhale 1 puff by | 1 | 3 | 07/ | | Activ | | MCG/ACT inhaler | mouth twice a day | Inhaler | | /20 | | e | | | | | | 15 | | | + + + +---------+------+------+-------+ | Respiratory | Z1 Travel CPAP set | 1 each | 0 | 05/1 | | Activ | | Therapy Supplies | at 8 cm H2O with all | | | 7/20 | | e | | MISC | supplies, mask, | | | 16 | | | | | headgear, chin | | | | | | | | strap, hoses, | | | | | | | | humidifier chamber | | | | | | | | and filters. | | | | | | | | Duration: Lifetime | | | | | | | | Dx: G47.33 | | | | | | + + + +---------+------+------+-------+ | diphenhydrAMINE | Take 50 mg by mouth | | 0 | | | Activ | | (BENADRYL) 25 MG | nightly as needed. | | | | | e | | capsule | | | | | | | + + + +---------+------+------+-------+ | Garlic 1000 MG | Take 2,000 mg by | | 0 | | | Activ | | CAPS | mouth Daily. | | | | | e | + + + +---------+------+------+-------+ | losartan (COZAAR) | Take 100 mg by mouth | | 0 | | | Activ | | 100 MG tablet | Daily. | | | | | e | + + + +---------+------+------+-------+ | triamcinolone | Apply topically | | 0 | | | Activ | | (KENALOG) 0.1% | Twice daily as | | | | | e | | ointment | needed. | | | | | | + + + +---------+------+------+-------+ | Respiratory | Replacement CPAP at | 1 each | 0 | 03/1 | | Activ | | Therapy Supplies | 8 cm H2O with all | | | 9/20 | | e | | MISC | supplies to include | | | 18 | | | | | mask, headgear, chin | | | | | | | | strap, hoses, | | | | | | | | humidifier chamber | | | | | | | | and filters. | | | | | | | | Duration: Lifetime | | | | | | | | Dx: G47.33 | | | | | | + + + +---------+------+------+-------+ | clopidogrel | Take 1 tablet by | | 0 | 07/ | | Activ | | (PLAVIX) 75 mg | mouth Daily. | | | 0/20 | | e | | tablet | | | | 18 | | | + + + +---------+------+------+-------+ | cetirizine | Take 5 mg by mouth | | 0 | | | Activ | | (ZYRTEC) 5 mg tablet | Daily. | | | | | e | + + + +---------+------+------+-------+ | amLODIPine | Take 1 tablet by | | 0 | / | 08/10 | Activ | | (NORVASC) 10 MG | mouth daily. | | | 5/20 | 5/20 | e | | tablet | | | | 18 | 19 | | + + + +---------+------+------+-------+ | Coenzyme Q10 100 | Take 100 mg by mouth | | 0 | | | Activ | | MG TABS | daily. | | | | | e | + + + +---------+------+------+-------+ | isosorbide | Take 1 tablet by | | 0 | 04/1 | 04/1 | Activ | | mononitrate (IMDUR) | mouth daily. | | | / | 20 | e | | 30 mg ER tablet | | | | 19 | 20 | | + + + +---------+------+------+-------+ | metoprolol | Take 1 tablet by | | 0 | 02/1 | | Activ | | succinate | mouth daily. | | | 01/26 | | e | | (TOPROL-XL) 50 mg 24 | | | | 19 | | | | hr tablet | | | | | | | + + + +---------+------+------+-------+ | pravastatin | TAKE 1 TABLET BY | | 0 | 06/0 | | Activ | | (PRAVACHOL) 20 mg | MOUTH ONCE NIGHTLY | | | 5/20 | | e | | tablet | | | | 19 | | | + + + +---------+------+------+-------+ Active Problems + + + | Problem | Noted Date | + + + | Thyroid disease | 05/13/2019 | + + + | APURVA on CPAP | 05/13/2019 | + + + | TIA (transient ischemic attack) | 08/27/2018 | + + + | S/P CABG x 3 | 10/20/2017 | + + + | Acquired hypothyroidism | 10/20/2017 | + + + | Coronary artery disease involving [place] coronary artery of | 10/17/2017 | | [place] heart without angina pectoris | | + + + + + | Overview: Overview: | | Added automatically from request for surgery [id number] | + + + + + | Carotid stenosis | 02/09/2016 | + + + | APURVA (obstructive sleep apnea) | 05/29/2014 | + + + | Sleep related hypoventilation/hypoxemia in other disease | 05/29/2014 | + + + + + | Overview: Oxygen discontinued March 2015 | + + + + + | History of ARDS | 05/29/2014 | + + + | Abnormal PFT | 05/29/2014 | + + + | Coronary atherosclerosis | 05/29/2014 | + + + | Hyperlipidemia | 05/29/2014 | + + + | Essential hypertension | 05/29/2014 | + + + | Glaucoma | 05/29/2014 | + + + | COPD (chronic obstructive pulmonary disease) | 05/13/2014 | + + + | Atherosclerosis of aorta | 12/25/2013 | + + + | Peripheral vascular disease | 12/25/2013 | + + + | Aorto-iliac atherosclerosis | 12/25/2013 | + + + | Anemia of chronic disorder | 01/17/2012 | + + + | Carotid artery disease | | + + + | GERD (gastroesophageal reflux disease) | | + + + | Allergic rhinitis due to allergen | | + + + | Hypothyroidism | | + + + Resolved Problems + + + + | Problem | Noted | Resolved | | | Date | Date | + + + + | Hyperkalemia | 01/07/20 | | | | 12 | 6 | + + + + Encounters +--------+ + + + + | Date | Type | Specialty | Care Team | Description | +--------+ + + + + | 06/27/ | Office | Pulmonology | Ashley Barajas | Mild persistent | | 2018 | Visit | | MD Eric | asthma, unspecified | | | | | | whether complicated | | | | | | (Primary Dx); | | | | | | Seasonal allergic | | | | | | rhinitis, | | | | | | unspecified trigger; | | | | | | APURVA on CPAP | +--------+ + + + + | 05/13/ | Orders Only | | Provider, | Essential (primary) | | 2018 | | | MD [address] | hypertension; | | | | | | Atherosclerotic | | | | | | heart disease of | | | | | | [place] coronary | | | | | | artery without | | | | | | angina pectoris; | | | | | | Occlusion and | | | | | | stenosis of | | | | | | bilateral carotid | | | | | | arteries; Peripheral | | | | | | vascular disease | | | | | | ([facility]) | +--------+ + + + + from Last 3 Months Immunizations + + + + | Name | Dates Previously Given | Next Due | + + + + | INFLUENZA 65 Y OR >, | 07/24/2017, 07/25/2016 | | | TRIVALENT HIGH-DOSE | | | + + + + | INFLUENZA PF 18 Y OR | 06/23/2014, 07/23/2013 | | | >,QUADRIVALENT | | | | RECOMBINANT | | | + + + + | INFLUENZA PF 18 Y OR | 06/23/2014, 07/23/2013 | | | >,TRIVALENT | | | | RECOMBINANT | | | + + + + | INFLUENZA PF | 07/23/2015 | | | QUAD(PED/ADOL/ADULT) | | | | ,PSKT or VIAL | | | + + + + | PNEUMOCOCCAL | 07/23/2015 | | | CONJUGATE 13-VALENT | | | | (PCV13) | | | + + + + | PNEUMOCOCCAL | 10/09/2010 | | | POLYSACCHARIDE | | | | 23-VALENT (PPSV23) | | | + + + + | TDAP, (ADOL/ADULT) | 06/23/2014 | | + + + + Family History + + +------+ + | Medical History | Relation | Name | Comments | + + +------+ + | Allergies | Brother | | | + + +------+ + | Diabetes | Brother | | | + + +------+ + | Heart disease | Brother | | | + + +------+ + | Hypertension | Brother | | | + + +------+ + | Hypertension | Father | | | + + +------+ + | Prostate cancer | Father | | | + + +------+ + | Cancer | Father | | | + + +------+ + | Hypertension | Father | | | + + +------+ + | Glaucoma | Mother | | | + + +------+ + | Heart disease | Mother | | | + + +------+ + | Hypertension | Mother | | | + + +------+ + | Kidney disease | Mother | | | + + +------+ + | Thyroid disease | Mother | | | + + +------+ + | Heart disease | Mother | | | + + +------+ + | Hypertension | Mother | | | + + +------+ + | COPD | Sister | | | + + +------+ + | Emphysema | Sister | | | + + +------+ + | Glaucoma | Sister | | | + + +------+ + | Heart disease | Sister | | | + + +------+ + | Hypertension | Sister | | | + + +------+ + | PVD | Sister | | | + + +------+ + | Heart disease | Sister | | | + + +------+ + | Malig hypertherm | Neg Hx | | | + + +------+ + + +------+ + + | Relation | Name | Status | Comments | + +------+ + + | Brother | | | logging accident | + +------+ + + | Brother | | | complications of diabetes | + +------+ + + | Father | | | | + +------+ + + | Father | | | | + +------+ + + | Mother | | | | + +------+ + + | Mother | | | | + +------+ + + | Sister | | | | + +------+ + + | Sister | | Alive | | + +------+ + + | Sister | | | | + +------+ + + Social [...] | | | + +---+---+---+ + + | Tobacco Cessation: Counseling Given: No | + + + + +---------+ + | Alcohol Use [...] recent travel history available. | + + Last Filed Vital Signs + + + + | Vital Sign | Reading | Time Taken | + + + + | Blood Pressure | 122/60 | 06/27/20191438 PDT | + + + + | Pulse | 60 | 06/27/20191438 PDT | + + + + | Temperature | 36.7 C (98 F) | 09/01/2018751 PST | + + + + | Respiratory Rate | 20 | 09/01/2018751 PST | + + + + | [...] 1439 PDT | + + + + Plan of Treatment +--------+---------+ + + + | Date | Type | Specialty | Care Team | Description | +--------+---------+ + + + | 10/22/ | Office | Sleep Medicine | Reinaldo Gregg | | | 2020 | Visit | | MD Emre [address] | | | | | | [facility] | | | | | | [place] [address] | | | | | | [phone] | | | | | | | | +--------+---------+ + + + + + + + + | Health Maintenance | Due Date | Last Done | Comments | + + + + + | Hepatitis C | | | | | Screening | 5 | | | + + + + + | Colorectal Cancer | | | | | Screening | 5 | | | | (Colonoscopy) | | | | + + + + + | Breast Cancer | | | | | Screening | 0 | | | + + + + + | Vaccine: Zoster (2 | | 12/13/2010 | | | of 3) | 1 | | | + + + + + | Lung Cancer | | 01/06/2012 | | | Screening | 3 | | | + + + + + | Adult Annual | | | | | Wellness Visit | 5 | | | + + + + + | Vaccine: Influenza | | 07/12/2018, 07/24/2017, | | | (#1) | 9 | 07/08/2017, Additional history | | | | | exists | | + + + + + | Vaccine: | | 06/26/2014, 06/23/2014 | | | Dtap/Tdap/Td (3 - | 4 | | | | Td) | | | | + + + + + | Vaccine: | Completed | 07/23/2015, 06/16/2015, | | | Pneumococcal 65+ | | 10/09/2010 | | | Low/Medium Risk | | | | + + + + + Implants + +------+------+ +--------+--------+--------+ | Implanted | Type | Area | Manufacture | Device | Shelf | Model | | | | | r | | Expira | / | | | | | | Identi | tion | Serial | | | | | | fier | Date | / Lot | + +------+------+ +--------+--------+--------+ | Xgrft [facility] [facility] 0.8x8 | | | MONIKA | | 02/14/ | VG-[id number] | | - [id number]: Qty: 1 | | | BIOSCIENCE | | 2022 | 8N / | | on 08/28/2018 by Delon Bey | | | - EDDA | | | /[id number] | | MD Chun | | | | | | 22-132 | | | | | | | | 1081 | + +------+------+ +--------+--------+--------+ Results Not on filefrom Last 3 Months Insurance + +--------+ +--------+ +---------+--------+ | Payer | Benefi | Subscriber | Effect | Phone | Address | Type | | | t Plan | ID | monse | | | | | | / | | Dates | | | | | | Group | | | | | | + +--------+ +--------+ +---------+--------+ | MEDICARE | MEDICA | [id number] | 04/08/20 | [phone] | | Medica | | | RE | | 10-Pre | 5 | | re | | | PART A | | sent | | | | | | AND B | | | | | | + +--------+ +--------+ +---------+--------+ | INDIVIDUAL ASSURANCE | INDIVI | [id number] | 05/09/20 | | | Indemn | | COMPANY | DUAL | | 16-Pre | | | ity | | | ASSURA | | sent | | | | | | [place] | | | | | | | | MDCR | | | | | | | | SUPPL | | | | | | + +--------+ +--------+ +---------+--------+ + +--------+ +--------+ + + | Guarantor Name | Accoun | Relation to | Date | Phone | Billing Address | | | t Type | Patient | of | | | | | | | | | | + +--------+ +--------+ + + | Alka Wynne | Person | Self [birth year] | [address] | | | al/Fam | | 1945 | [phone] | [place] | | | [place] | | | [address] (Home) | [address] | + +--------+ +--------+ + + Advance Directives Patient has advance care planning documents on file. For more information, please contact:[facility] [place] [address]
--- OUTSIDE RECORDS SUMMARY | ~2019-07-28 | XMS | Encounter Summary ---
Demographics + + + | Address | [address] | | | [place] [address] | + + + | Home Phone | | + + + | Preferred Language | Unknown | + + + | Marital Status | | + + + | Confucianist Affiliation | Unknown | + + + | Race | White | + + + | Ethnic Group | Not or | + + + Author + + + | Author | [facility] | + + + | Organization | [facility] | + + + | Address [...] Team Providers + +------+ + | Care Plate Mounter Name | Role | Phone | + +------+ + PCP | Unavailable | + +------+ + Encounter Details +--------+ + + + + | Date | Type | Department | Care Team | Description | +--------+ + + + + | 04/06/ | Plc Technician | [facility] | Daniel Carbajal | | | 2005 | | [facility] | G | | | | | [facility] | | | | | | [address] | | | | | | Mailcode: [address] | | | | | | [place], [place] | | | | | | [address] | | | | | | [phone] | | | +--------+ + + + [...]
--- OUTSIDE RECORDS SUMMARY | ~2019-07-28 | XMS | Encounter Summary ---
Demographics + + + | Address | [address] | | | [place] [address] | + + + | Home Phone | | + + + | Preferred Language | Unknown | + + + | Marital Status | | + + + | Temple Affiliation | 1077 | + + + | Race | Unknown | + + + | Ethnic Group | Unknown | + + + Author + + + | Author | [facility] | | | and [place]ana | + + + | Organization | [facility] | | | and [place] [...] [place] | | | | | [address] | | + + + + + | Radha Diaz | ECON | Unknown | | + + + + + Care Team Providers + +------+ + | Care Plant Health Manager Name | Role | Phone | [...] | | | [address] | [place] | | | | | | [place], | [place] | | | | | | [place] [address] | [place] | | | | | | Phone: | [address] Phone: | | | | | | [phone] | [phone] | | | | | | Fax: | Fax: | | | | | | [phone] | [phone] | + + + + + + [...] | | pulmonary | [address] | [facility] | | | | | disease, | [address] | [place], [place] | | | | | unspecified | [place], | [address] Phone: | | | | | ([facility]) | [place] | [phone] | | | | | Procedures | [address] | Fax: | | | | | F/U APPT | Phone: | [phone] | | | | | W/JASON KEENE | [phone] | | | | | | [place] | Fax: | | | | | | | [phone] | | + +--------+ + + + + Encounter Details +--------+---------+ + + + | Date | Type | Department | Care Team | Description | +--------+---------+ + + + | 06/27/ | Office | [facility] | Ashley Barajas | Mild persistent | | 2019 | Visit | PULMONARY [address] | MD Eric [address] | asthma, unspecified | | | | [place], | [address] [place] | whether complicated | | | | [place] [address] | [place] [address] | (Primary Dx); | | | | [phone] | [phone] | Seasonal allergic | | | | [...] clean towels or air-dry them. Use hand pit tanner containing alcohol, if you are unable to wash your hands. Use the del valle itizer after touching doorknobs, handles, and supermarket carts, for example, since lots of people touch them. Then wash your hands as soon as you can. To help prevent the flu, get a flu vaccination every year. This may be given at your [facility] provider's office, a drugstore, or pharmacy, or at work. Get your flu shot as soon a s the vaccines are available in your area. This is usually around June each year. To help prevent pneumococcal pneumonia, get pneumonia vaccinations. [facility] with [facility] provider about which pneumococcal vaccinations you [...] your chance of infections. Date Last Reviewed: 01/21/201619993923-5652 [employer]. [address] [place] [address], [place] [address]. All righ ts reserved. This information is [...] | Visit | | MD Emre [address] | | | | | | [place] | | | | | | [place] [address] | | | | | | [phone] | | | | | | | | +--------+---------+ + + + + +--------+ + + | Name | Priori | Associated Diagnoses | Order Schedule | | | ty | | | + +--------+ + + | AMB REFERRAL TO [facility] [place] BIANCHI | Routin | APURVA [...]
--- OUTSIDE RECORDS SUMMARY | ~2019-07-28 | XMS | Encounter Summary ---
Demographics + + + | Address | [address] | | | [place] [address] | + + + | Home Phone | | + + + | Preferred Language | Unknown | + + + | Marital Status | | + + + | Yarsanism Affiliation | Unknown | + + + | Race | White | + + + | Ethnic Group | Not or | + + + Author + + + | Author | [facility] | + + + | Organization | [facility] | + + + | Address [...] Team Providers + +------+ + | Care Director Marketing Name | Role | Phone | [...] Hole, | | 2005 | Visit | [facility] at | MD [address] | or Pseudohole of | | | | [address] | [facility], | Retina (Primary Dx) | | | | [address] | [place] [address] | | | | | Mailcode: [facility] | [phone] | | | | | [place], [place] | | | | | | [address] | | | | | | [phone] | | | +--------+---------+ + + + [...] given. Daniel Carbajal MD, PhD Retina Fellow, [facility] 04/07/2006 documented in this en counter Plan of Treatment Not on filedocumented as of this encounter Visit Diagnoses + + | Diagnosis | + + | Macular cyst, hole, or pseudohole of retina - Primary | + + documented in this encounter"
--- OUTSIDE RECORDS SUMMARY | ~2019-07-28 | XMS | Encounter Summary ---
Demographics + + + | Address | [address] | | | [place] [address] | + + + | Home Phone | | + + + | Preferred Language | Unknown | + + + | Marital Status | | + + + | Worship Affiliation | Unknown | + + + | Race | White | + + + | Ethnic Group | Not or | + + + Author + + + | Author | [facility] | + + + | Organization | [facility] | + + + | [...] Team Providers + +------+ + | Care Finish Mixer Name | Role | Phone | + +------+ + | Rad London DO | PCP | | + +------+ + Reason for Visit + + + | Reason | Comments | + + + | Postoperative visit | | + + + Encounter Details +--------+---------+ + + + | Date | Type | Department | Care Team | Description | +--------+---------+ + + + | 04/26/ | Office | [facility] | TruongElie | Borderline Glaucoma | | 2005 | Visit | [facility] at | MD [address] | with Ocular | | | | [address] | [facility], | Hypertension; | | | | [address] | [place] [address] | Macular Cyst, Hole, | | | | Mailcode: [facility] | [phone] | or Pseudohole of | | | | [place], [place] | | Retina | | | | [address] | | | | | | [phone] | | | +--------+---------+ + + + [...] + documented as of this encounter Progress Андрей Mathews - 04/26/2006 2:00 PM PDT Alka Wynne is a 61 y.o. female s/p PPV/MS/GFx 04/06/06 OS pt states no signif eye pain. Pt denies worsening vision. Resolved neck and shoulder pain. Pt noted that gas bubble broke up. vision is OK. POHx Macular hole, left eye. Procedures Performed: 04/06/06 1. Pars plana vitrectomy with membrane segmentation. 2. Gas-fluid exchange (14% SF6 gas). eye drops LE Prednisolone Acetate 1% ophth sups 4 x/day Atropine 2 x/day Vigamox 4 x/day VAsc LE 20/80-1 Tpen LE 24 Slit Lamp Exam: LE Lids/Lacrimal/Tear: normal Conjunctiva: normal Cornea: epithelium intact, normal stromal thickness AC: deep and clear Iris: normal Lens: 3+ NS Fundus Exam: LE Vitreous: normal Disc: CDR 0.4 Macula: spot of heme inf to fovea; (-) watzke; improved metamorphopsia Vessels: normal Periphery:normal resorbed gas fill Retina flat A/P: 1. s/p PPV/MS/GFx 04/06/06 OS: doing well 2. IOP slightly up will recheck w/ Marcos CPM F/U 2-3 mos J Michael Truong MD, PhD documented in this en counter Plan of Treatment Not on filedocumented as of this encounter Visit Diagnoses + + | Diagnosis | + + | Borderline glaucoma with ocular hypertension | + + | Macular cyst, hole, or pseudohole of retina | + + documented in this encounter"
--- OUTSIDE RECORDS SUMMARY | ~2019-07-28 | XMS | Encounter Summary ---
Demographics + + + | Address | [address] | | | [place] [address] | + + + | Home Phone | | + + + | Preferred Language | Unknown | + + + | Marital Status | | + + + | Alevism Affiliation | 1077 | + + + | Race | Unknown | + + + | Ethnic Group | Unknown | + + + Author + + + | Author | [facility] | | | and [place] | + + + | Organization | [facility] | | | and [place] [...] [place] | | | | | [address] | | + + + + + | Radha Diaz | ECON | Unknown | | + + + + + Care Team Providers + +------+ + | Care Histological Illustrator Name | Role | Phone | + [...] | | | [address] | [place] | | | | | | [place], | [place] | | | | | | [place] [address] | [place] | | | | | | Phone: | [address] Phone: | | | | | | [phone] | [phone] | | | | | | Fax: | Fax: | | | | | | [phone] | [phone] | + + + + + + [...] | pulmonary | [address] | [facility] | | | | | disease, | [address] | [place], [place] | | | | | unspecified | [place], | [address] Phone: | | | | | [facility] | [place] | [phone] | | | | | Procedures | [address] | Fax: | | | | | F/U APPT | Phone: | [phone] | | | | | W/JASON KEENE | [phone] | | | | | | [place] | Fax: | | | | | | | [phone] | | + +--------+ + + + + Encounter Details +--------+---------+ + + + | Date | Type | Department | Care Team | Description | +--------+---------+ + + + | 06/27/ | Office | [facility] | Ashley Barajas | Mild persistent | | 2019 | Visit | PULMONARY [address] | MD Eric [address] | asthma, unspecified | | | | [place], | [address] [place] | whether complicated | | | | [place] [address] | [place] [address] | (Primary Dx); | | | | [phone] | [phone] | Seasonal allergic | | | | [...] clean towels or air-dry them. Use hand life sciences teacher containing alcohol, if you are unable to wash your hands. Use the del valle itizer after touching doorknobs, handles, and supermarket carts, for example, since lots of people touch them. Then wash your hands as soon as you can. To help prevent the flu, get a flu vaccination every year. This may be given at your [facility] provider's office, a drugstore, or pharmacy, or at work. Get your flu shot as soon a s the vaccines are available in your area. This is usually around June each year. To help prevent pneumococcal pneumonia, get pneumonia vaccinations. [facility] with your [facility] provider about which pneumococcal vaccinations you [...] your chance of infections. Date Last Reviewed: 01/21/201619990221-0898 [employer]. [address] [place] [address], [place] [address]. All righ ts reserved. This information is [...] | Visit | | MD Emre [address] | | | | | | [place] | | | | | | [place] [address] | | | | | | [phone] | | | | | | | | +--------+---------+ + + + + +--------+ + + | Name | Priori | Associated Diagnoses | Order Schedule | | | ty | | | + +--------+ + + | AMB REFERRAL TO [facility] [place]HEMY BIANCHI | Routin | APURVA [...]
--- OUTSIDE RECORDS SUMMARY | ~2019-07-28 | XMS | Encounter Summary ---
Demographics + + + | Address | [address] | | | [place] [address] | + + + | Home Phone | | + + + | Preferred Language | Unknown | + + + | Marital Status | | + + + | Holiness Affiliation | Unknown | + + + | Race | White | + + + | Ethnic Group | Not or | + + + Author + + + | Author | [facility] | + + + | Organization | [facility] | + + + | Address [...] Team Providers + +------+ + | Care Network Internship Name | Role | Phone | + [...] Glaucoma | | 2005 | Visit | [facility] at | [address] | with Ocular | | | | [address] | [facility], | Hypertension; | | | | [address] | [place] [address] | Macular Cyst, Hole, | | | | Mailcode: [facility] | [phone] | or Pseudohole of | | | | [place], [place] | | Retina | | | | [address] | | | | | | [phone] | | | +--------+---------+ + + + [...] w/ Marcos CPM F/U 2-3 mos J Micheal Truong MD, PhD documented in this en counter Plan of Treatment Not on filedocumented as of this encounter Visit Diagnoses + + | Diagnosis | + + | Borderline glaucoma with ocular hypertension | + + | Macular cyst, hole, or pseudohole of retina | + + documented in this encounter"
--- OUTSIDE RECORDS SUMMARY | ~2019-07-28 | XMS | Encounter Summary ---
Demographics + + + | Address | [address] | | | [place] [address] | + + + | Home Phone | | + + + | Preferred Language | Unknown | + + + | Marital Status | | + + + | Alevism Affiliation | Unknown | + + + | Race | White | + + + | Ethnic Group | Not or | + + + Author + + + | Author | [facility] | + + + | Organization | [facility] | + + + | [...] Team Providers + +------+ + | Care Legal Secretary Receptionist Name | Role | Phone | + [...] Hole, | | 2006 | Visit | [facility] at | [address] | or Pseudohole of | | | | [address] | [facility] [place], | Retina (Primary Dx) | | | | [address] | [place] [address] | | | | | Mailcode: [facility] | [phone] | | | | | [place], [place] | | | | | | [address] | | | | | | [phone] | | | +--------+---------+ + + + [...] Tobacco Use: No Drives: Yes 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
--- OUTSIDE RECORDS SUMMARY | ~2019-07-28 | XMS | Encounter Summary ---
Demographics + + + | Address | [address] | | | [place] [address] | + + + | Home Phone | | + + + | Preferred Language | Unknown | + + + | Marital Status | | + + + | Mu-Ism Affiliation | Unknown | + + + | Race | White | + + + | Ethnic Group | Not or | + + + Author + + + | Author | [facility] | + + + | Organization | [facility] | + + + | Address [...] Team Providers + +------+ + | Care Parts Control Clerk Name | Role | Phone | + +------+ + | Rad London DO | PCP | | + +------+ + Encounter Details +--------+ + + + + | Date | Type | Department | Care Team | Description | +--------+ + + + + | 04/06/ | Hospital | Registration [address] | Elie Truong | | | 2005 | Activity | [address] | [address] | | | | | [address] Mailcode: [id number] | [place], | | | | | [place], [place] | [place] [address] | | | | | [address] | [phone] | | | | | [phone] | | | +--------+ + + + [...]
--- OUTSIDE RECORDS SUMMARY | ~2019-07-28 | XMS | Clinical Summary ---
Demographics + + + | Address | [address] | | | [place] [address] | + + + | Home Phone | | + + + | Preferred Language | Unknown | + + + | Marital Status | | + + + | Orthodoxy Affiliation | Unknown | + + + | Race | White | + + + | Ethnic Group | Not or | + + + Author + + + | Author | [facility] | + + + | Organization | [facility] | + + + | Address | [...] Team Providers + +------+ + | Care Virologist Name | Role | Phone | + +------+ + | Rad London DO | PCP | | + +------+ + Source Comments RADHA is fully live on both EpicCare Ambulatory and EpicCare InPatient.[facility] Allergies + + + + + + | Active Allergy | Reactions | Severity | Noted | Comments | | | | | Date | | + + + + + + | Penicillins | | | 02/02/20 | | | | | | 06 | | + + + + + + Medications + + + +---------+------+------+-------+ | Medication | Sig | Dispensed | Refills | Star | End | Statu | | | | | | t | Date | s | | | | | | Date | | | + + + +---------+------+------+-------+ | ALTOPREV OR | None Entered | | 0 | | | Activ | | | | | | | | e | + + + +---------+------+------+-------+ | LEVOTHROID OR | None Entered | | 0 | | | Activ | | | | | | | | e | + + + +---------+------+------+-------+ | OCUFLOX 0.3 % EYE | 1 drop to affected | 1 | 0 | 06/2 | | Activ | | DROPS | eye 4 times a day | | | 9/20 | | e | | | | | | 06 | | | + + + +---------+------+------+-------+ | ZYRTEC OR | None Entered | | 0 | | | Activ | | | | | | | | e | + + + +---------+------+------+-------+ Active Problems + + + | Problem | Noted Date | + + + | Borderline glaucoma with ocular hypertension | 04/26/2006 | + + + | Macular cyst, hole, or pseudohole of retina | 02/01/2006 | + + + Social History + +-------+ [...] | + + Last Filed Vital Signs Not on file Plan of Treatment + + + + + | Health Maintenance | Due Date | Last Done | Comments | + + + + + | Pneumococcal | | | | | vaccination (1 of 2 | 0 | | | | - PCV13) | | | | + + + + + | Influenza (Flu) | | | | | vaccination (#1) | 9 | | | + + + + + Results Not on filefrom Last 3 Months"
--- OUTSIDE RECORDS SUMMARY | ~2019-07-28 | XMS | Clinical Summary ---
Demographics + + + | Address | [address] | | | [place] [address] | + + + | Home Phone | | + + + | Preferred Language | Unknown | + + + | Marital Status | | + + + | Evangelical Affiliation | 1077 | + + + | Race | Unknown | + + + | Ethnic Group | Unknown | + + + Author + + + | Author | [facility] [place] (Historical as of | | | 05-25-19) | + + + | Organization | [facility] [place] (Historical as of | | | 05-25-19) [...] [place] | | | | | [address] | | + + + + + | Radha Diaz | ECON | Unknown | | + + + + + Care Team Providers + +------+ + | Care Grain Broker Name | Role | Phone | + [...] + + + + + | Tiotropium [place] | Anaphylaxis | High | 12/11/19 | [...] + + | 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 | 10/17/2017 | | council heart without angina pectoris | | + + + + + | Overview: Added automatically from request for surgery [id number] | + + + + + | [...] | + +------+------+ +--------+--------+--------+ | Xgrft Vascu-Guard [facility] 0.8x8 | | | [place] | | 02/14/ | VG-[id number] | | - [id number]: Qty: 1 | | | BIOSCIENCE | [...] +------+-------+ + | MEDICARE | MEDICA | [id number] | | | [address] | | | RE | | | | [place], [place] [address] | | | IP-OP | | | | | + +--------+ +------+-------+ + | COMMERCIAL OTHER | COMMER | [id number] | | | | | | CIAL [...] | [place] | | | [phone] | [phone] | + +--------+ +--------+ + +
--- OUTSIDE RECORDS SUMMARY | ~2019-07-28 | XMS | Encounter Summary ---
Demographics + + + | Address | [address] | | | [place] [address] | + + + | Home Phone | | + + + | Preferred Language | Unknown | + + + | Marital Status | | + + + | Nondenominational Affiliation | Unknown | + + + | Race | White | + + + | Ethnic Group | Not or | + + + Author + + + | Author | [facility] | + + + | Organization | [facility] | + + + | [...] Team Providers + +------+ + | Care Marker Machine Name | Role | Phone | + +------+ + | Rad London DO | PCP | | + +------+ + Reason for Visit + + + | Reason | Comments | + + + | Follow-up visit | | + + + Encounter Details +--------+---------+ + + + | Date | Type | Department | Care Team | Description | +--------+---------+ + + + | 07/28/ | Office | [facility] | Elie Truong | Macular Cyst, Hole, | | 2006 | Visit | [facility] at | [address] | or Pseudohole of | | | | [address] | [facility], | Retina (Primary Dx) | | | | [address] | [place] [address] | | | | | Mailcode: [facility] | [phone] | | | | | [place], [place] | | | | | | [address] | | | | | | [phone] | | | +--------+---------+ + + + [...] documented as of this encounter Progress Notes Liz Sanabria - 07/28/2006 11:45 AM PDT History of Present Illness: s/p PPV / gas for macular hole OS (03/14) Alka Wynne is a 61 y.o. female. Cataract removal left eye on 06/01/06 ()"Vision is better, but stil l having distortion in the right upper area of the vision" Has given up reading for a while . Medications: acular 4x pred forte 4x Review of Systems: Right Left Loss of Vision n distotion Eye Pain n n Mental Status: Oriented times three Examination: VAsc RE: / VAcc RE: 20/25 VAph RE: 20/20-2 VAsc LE: / VAcc LE: 20/70-2 VAph LE: 20/30-2 See amsler os Intraocular Pressure: RE: 18 LE: 24 Method: Tonopen Time: 11:42 AM Dilating drops placed: tropicamide 1% and neosynephrine 2.5% at 11:44 AM.ou/drv External OD normal, OS normal Slit lamp exam: RE LE Lids/Lacrimal/Tear: normal Conjunctiva: normal Cornea: epithelium intact, normal stromal thickness AC: deep and clear Iris: normal Lens: Lids/Lacrimal/Tear: normal Conjunctiva: normal Cornea: epithelium intact, normal stromal thickness AC: deep and clear Iris: normal Lens: Fundus Exam: RE LE Vitreous: normal Disc: CDR Macula: normal Vessels: normal Periphery: normal Vitreous: normal Disc: CDR Macula: mild erm, but hole appears closed, Watzke - Vessels: normal Periphery: normal Assessment and Plan: Well s/p PPV for FTMH Hole closed F/U Terry contreras schedog Truong MD, PhD documented in this en counter Plan of Treatment Not on filedocumented as of this encounter Visit Diagnoses + + | Diagnosis | + + | Macular cyst, hole, or pseudohole of retina - Primary | + + documented in this encounter
--- OUTSIDE RECORDS SUMMARY | ~2019-07-28 | XMS | Encounter Summary ---
Demographics + + + | Address | [address] | | | [place] [address] | + + + | Home Phone [...] + + + | Author | [facility] | + + + | Organization | [facility] | + + + [...] Team Providers + +------+ + | Care Broaching Machine Operator Name | Role | Phone [...] Hole, | | 2006 | Visit | [facility] at | [address] | or Pseudohole of | | | | [address] [place] [address] | [facility], | Retina (Primary Dx) | | | | [address] | [place] [address] | | | | | Mailcode: [facility] | [phone] | | | | | [place], [place] | | | | | | [address] | | | | | | [phone] | | | +--------+---------+ + + + [...]
--- OUTSIDE RECORDS SUMMARY | ~2019-07-28 | XMS | Encounter Summary ---
Demographics + + + | Address | [address] | | | [place] [address] | + + + | Home Phone | | + + + | Preferred Language | Unknown | + + + | Marital Status | | + + + | Restorationism Affiliation | Unknown | + + + | Race | White | + + + | Ethnic Group | Not or | + + + Author + + + | Author | [facility] | + + + | Organization | [facility] | + + + | [...] Team Providers + +------+ + | Care Supervising Law Enforcement Analyst Name | Role | Phone | + +------+ + PCP | Unavailable | + +------+ + Reason for Visit + + + | Reason | Comments | + + + | Postoperative visit | | + + + Encounter Details +--------+---------+ + + + | Date | Type | Department | Care Team | Description | +--------+---------+ + + + | 04/14/ | Office | [facility] | Elie Truong | Macular Cyst, Hole, | | 2005 | Visit | [facility] at | [address] | or Pseudohole of | | | | [address] | [facility], | Retina (Primary Dx) | | | | [address] | [place] [address] | | | | | Mailcode: [facility] | [phone] | | | | | [place], [place] | | | | | | [address] | | | | | | [phone] | | | +--------+---------+ + + + [...] this encounter Progress Notes Alvina Francisco - 04/14/2006 8:29 AM PDTBeverly Sanjiv Wynne is a 60 y.o female POD#8 pt states no signif eye pain. sore neck and shoulders because of positioning. gas bubble somewhat nauseating. vision is OK. prefers to keep eye closed. POHx Macular hole, left eye. Procedures Performed: 04/06/06 1. Pars plana vitrectomy with membrane segmentation. 2. Gas-fluid exchange (14% SF6 gas). eye drops LE Prednisolone Acetate 1% ophth sups 4 x/day Atropine 2 x/day Vigamox 4 x/day VAsc LE 20/60-2 Tpen LE 17 K clear AC deep and quiet 30% gas fill Retina flat spot of heme near fovea but hole look s closed, watzke neg CPM F/U 2-3 weeks J Michael Truong MD, PhD documented in this en counter Plan of Treatment Not on filedocumented as of this encounter Visit Diagnoses + + | Diagnosis | + + | Macular cyst, hole, or pseudohole of retina - Primary | + + documented in this encounter"
--- OUTSIDE RECORDS SUMMARY | ~2019-07-28 | XMS | Encounter Summary ---
Demographics + + + | Address | [address] | | | [place] [address] | + + + | Home Phone | | + + + | Preferred Language | Unknown | + + + | Marital Status | | + + + | Tenriism Affiliation | Unknown | + + + | Race | White | + + + | Ethnic Group | Not or | + + + Author + + + | Author | [facility] | + + + | Organization | [facility] | + + + | Address [...] Providers + +------+ + | Care Plate Straightener Name | Role | Phone | + +------+ + | Rad London DO | PCP | | + +------+ + Encounter Details +--------+ + + + + | Date | Type | Department | Care Team | Description | +--------+ + + + + | 02/01/ | Ancillary | Registration 3181 | Elie Truong | | | 2005 | Registratio | [facility] | MD [address] | | | | n | [address] Mailcode: [id number] | [address], | | | | | [place], [place] | [place] [address] | | | | | [address] | [phone] | | | | | [phone] | | | +--------+ + + + [...]
--- OUTSIDE RECORDS SUMMARY | ~2019-07-28 | XMS | Clinical Summary ---
Demographics + + + | Address | [address] | | | [place] [address] | + + + | Home Phone | | + + + | Preferred Language | Unknown | + + + | Marital Status | | + + + | Episcopal Affiliation | Unknown | + + + | Race | White | + + + | Ethnic Group | Not or | + + + Author + + + | Author | [facility] | + + + | Organization | [facility] | + + + | Address | [...] Team Providers + +------+ + | Care Window Shade Ring Sewer Name | Role | Phone | + +------+ + | Rad London DO | PCP | | + +------+ + Source Comments RADHA is fully live on both EpicCare Ambulatory and EpicCare InPatient.[facility] Allergies + + + + + + [...]
--- OUTSIDE RECORDS SUMMARY | ~2019-07-28 | XMS | Clinical Summary ---
Demographics + + + | Address | [address] | | | [place] [address] | + + + | Home Phone | | + + + | Preferred Language | Unknown | + + + | Marital Status | | + + + | Adventism Affiliation | 1077 | + + + | Race | Unknown | + + + | Ethnic Group | Unknown | + + + Author + + + | Author | [facility] | | | and [place]ana | + + + | Organization | [facility] | | | and [place] [...] [place] | | | | | [address] | | + + + + + | Radha Diza | NIDHI | Unknown | | + + + + + Care Team Providers + +------+ + | Care Automatic Buffing Wheel Former Name | Role | Phone | + [...] + + + + + | Tiotropium [place] | Hives, Rash | Low | 08/05/20 [...] + + | Coronary artery disease involving [place] coronary artery of | 10/17/2017 | | nome heart without angina pectoris | | + + + + + | Overview: Overview: | | Added automatically from request for surgery [id number] | + + + + + | [...] trigger; | | | | | | APURAV on CPAP | +--------+ + + + + | 05/13/ | Orders Only | | Provider, | Essential (primary) | | 2018 | | | MD [place] | hypertension; | | | | | | Atherosclerotic | | | | | | heart disease of | | | | | | nome coronary | | | | | | artery without | | | | | | angina pectoris; | | | | | | Occlusion and | | | | | | stenosis of | | | | | | bilateral carotid | | | | | | arteries; Peripheral | | | | | | vascular disease | | | | | | [facility] | +--------+ + + + [...] | Visit | | MD Emre [address] | | | | | | [facility] | | | | | | [place] [address] | | | | | | [phone] | | | | | | | [...] | + +------+------+ +--------+--------+--------+ | Xgrft Vascu-Guard [facility] 0.8x8 | | | MONIKA | | 02/14/ | VG-010 | | - [id number]: Qty: 1 | | | BIOSCIENCE | [...] +--------+ +---------+--------+ | MEDICARE | MEDICA | [id number] | 04/08/20 | [phone] | | Medica | | | RE | | 10-Pre | 5 | | re | | | PART A | | sent | | | | | | AND B | | | | | | + +--------+ +--------+ +---------+--------+ | INDIVIDUAL ASSURANCE | INDIVI | [id number] | 05/09/20 | | | Indemn | [...] | | al/Fam | | 1945 | [phone] | [place] | | | [place] | | | 5 (Home) | [phone] | + +--------+ +--------+ + + Advance Directives Patient has advance care planning documents on file. For more information, please contact:[facility] / [place] [address]
--- OUTSIDE RECORDS SUMMARY | ~2019-07-28 | XMS | Encounter Summary ---
Demographics + + + | Address | [address] | | | [place] [address] | + + + | Home Phone | | + + + | Preferred Language | Unknown | + + + | Marital Status | | + + + | Quaker Affiliation | Unknown | + + + | Race | White | + + + | Ethnic Group | Not or | + + + Author + + + | Author | [facility] | + + + | Organization | [facility] | + + + | Address [...] Team Providers + +------+ + | Care Machine Tailer Name | Role | Phone | + [...] Hole, | | 2005 | Visit | [facility] at | [address] | or Pseudohole of | | | | [address] [address] | [facility], | Retina (Primary Dx) | | | | [address] | [place] [address] | | | | | Mailcode: [facility] | [phone] | | | | | [place], [place] | | | | | | [address] | | | | | | [phone] | | | +--------+---------+ + + + [...]
--- OUTSIDE RECORDS SUMMARY | ~2019-07-28 | XMS | Encounter Summary ---
Demographics + + + | Address | [address] | | | [place] [address] | + + + | Home Phone | | + + + | Preferred Language | Unknown | + + + | Marital Status | | + + + | Roman Catholic Affiliation | Unknown | + + + | Race | White | + + + | Ethnic Group | Not or | + + + Author + + + | Author | [facility] | + + + | Organization | [facility] | + + + | Address [...] Team Providers + +------+ + | Care Weather Clerk Name | Role | Phone | [...] Hole, | | 2006 | Visit | [place] | | or Pseudohole of | | | | Photography at | | Retina | | | | [address] | | | | | | [address] | | | | | | Mailcode: [address] | | | | | | [place], [place] | | | | | | [address] | | | | | | [phone] | | | +--------+---------+ + + + [...] PM PDTBevergianfranco Wynne was seen in the [facility] itute Photography Department today, 02/01/2006, for OCT. documented in this enco unter Plan of Treatment Not on filedocumented as of this encounter Visit Diagnoses + + | Diagnosis | + + | Macular cyst, hole, or pseudohole of retina | + + documented in this encounter"
--- OUTSIDE RECORDS SUMMARY | ~2019-07-28 | XMS | Encounter Summary ---
Demographics + + + | Address | [address] | | | [place] [address] | + + + | Home Phone [...] + + + | Author | [facility] | + + + | Organization | [facility] | + + + | [...] Team Providers + +------+ + | Care Box Stamper Name | Role | Phone | + +------+ + PCP | Unavailable | + +------+ + Encounter Details +--------+ + + + + | Date | Type | Department | Care Team | Description | +--------+ + + + + | 04/06/ | Human Resources Supervisor | [facility] | Daniel Carbajal | | | 2005 | | [facility] at | G | | | | | [address] [facility] | | | | | | [address] | | | | | | Mailcode: [address] | | | | | | [place], [place] | | | | | | [address] | | | | | | [phone] | | | +--------+ + + + [...]
--- OUTSIDE RECORDS SUMMARY | ~2019-07-28 | XMS | Encounter Summary ---
Demographics + + + | Address | [address] | | | [place] [address] | + + + | Home Phone | | + + + | Preferred Language | Unknown | + + + | Marital Status | | + + + | Mormonism Affiliation | Unknown | + + + | Race | White | + + + | Ethnic Group | Not or | + + + Author + + + | Author | [facility] | + + + | Organization | [facility] | + + + | Address [...] Team Providers + +------+ + | Care Benefits Assistant Name | Role | Phone | + +------+ + | Rad London DO | PCP | | + +------+ + Encounter Details +--------+ + + + + | Date | Type | Department | Care Team | Description | +--------+ + + + + | 02/01/ | Ancillary | Registration 3181 | Elie Truong | | | 2005 | Registratio | [facility] | [address] | | | | n | [address] Mailcode: [address] | [address], | | | | | [place], [place] | [place] [address] | | | | | [address] | [phone] | | | | | [phone] | | | +--------+ + + + [...]
--- OUTSIDE RECORDS SUMMARY | ~2019-07-28 | XMS | Encounter Summary ---
Demographics + + + | Address | [address] | | | [place] [address] | + + + | Home Phone [...] Team Providers + +------+ + | Care Packaging Associate Name | Role | Phone | + [...] Hole, | | 2006 | Visit | [facility] at | [address] | or Pseudohole of | | | | [address] [place] [address] | [facility], | Retina (Primary Dx) | | | | [address] | [place] [address] | | | | | Mailcode: [facility] | [phone] | | | | | [place], [place] | | | | | | [address] | | | | | | [phone] | | | +--------+---------+ + + + [...]
--- OUTSIDE RECORDS SUMMARY | ~2019-07-28 | XMS | Encounter Summary ---
Demographics + + + | Address | [address] | | | [place] [address] | + + + | Home Phone | | + + + | Preferred Language | Unknown | + + + | Marital Status | | + + + | Hoahaoism Affiliation | 1077 | + + + | Race | Unknown | + + + | Ethnic Group | Unknown | + + + Author + + + | Author | [facility] | | | and [place] | + + + | Organization | [facility] | | | and [place] [...] [place] | | | | | [address] | | + + + + + | Radha Diaz | ECON | Unknown | | + + + + + Care Team Providers + +------+ + | Care Web Master Name | Role | Phone | + +------+ + | Vladimir Fischer | CINTHYA | | | MD | | | + +------+ + Encounter Details +--------+ + + + + | Date | Type | Department | Care Team | Description | +--------+ + + + + | 05/13/ | Orders Only | [facility] | Provider, | Essential (primary) | | 2019 | | SYSTEM GENERIC OP | [address] | hypertension; | | | | CONVERSION [address] | [address]. | Atherosclerotic | | | | [address] [place], [place] | [place] [address] | heart disease of | | | | [address] | | [place] coronary | | | | [phone] | | artery without | | | [...] | Visit | | MD Emre [address] | | | | | | [address] | | | | | | [place] [address] | | | | | | [phone] | | | | | | | [...] disease of | | | | | [place] coronary | | | | | artery [...] disease of | | | | | [place] coronary | | | | | artery [...] disease of | | | | | [place] coronary | | | | | artery [...] + + | Atherosclerotic heart disease of [place] coronary artery without angina pectoris | | Coronary atherosclerosis of [place] coronary artery | + + | Occlusion and stenosis of bilateral carotid arteries | + + | Peripheral vascular disease (HCC) Peripheral vascular disease, unspecified | + + documented in this encounter"
--- OUTSIDE RECORDS SUMMARY | ~2019-07-28 | XMS | Clinical Summary ---
Demographics + + + | Address | [address] | | | [place] [address] | + + + | Home Phone | | + + + | Preferred Language | Unknown | + + + | Marital Status | | + + + | Sikhism Affiliation | 1077 | + + + | Race | Unknown | + + + | Ethnic Group | Unknown | + + + Author + + + | Author | [facility] (Historical as of | | | 05-25-19) | + + + | Organization | [facility] (Historical as of | | | 05-25-19) [...] [place] | | | | | [address] | | + + + + + | Radha Diaz | ECON | Unknown | | + + + + + Care Team Providers + +------+ + | Care Leaf Tinner Name | Role | Phone | + [...] + + + + + | Tiotropium [place] | Anaphylaxis | High | 12/11/19 | [...] + + | Coronary artery disease involving [place] coronary artery of | 10/17/2017 | | [place] heart without angina pectoris | | + + + + + | Overview: Added automatically from request for surgery [id number] | + + + + + | [...] + +------+------+ +--------+--------+--------+ | Xgrft Vascu-Guard [facility] 0.8x8 | | | MONIKA | | 02/14/ | VG-010 | | - [id number]: Qty: 1 | | | BIOSCIENCE | [...] +------+-------+ + | MEDICARE | MEDICA | [id number] | | | [address] | | | RE | | | | [place], [place] [address] | | | IP-OP | | | | | + +--------+ +------+-------+ + | COMMERCIAL OTHER | COMMER | [id number] | | | | | | CIAL [...] | [place] | | | [phone] | [phone] | + +--------+ +--------+ + +
--- OUTSIDE RECORDS SUMMARY | ~2019-07-28 | XMS | Encounter Summary ---
Demographics + + + | Address | [address] | | | [place] [address] | + + + | Home Phone | | + + + | Preferred Language | Unknown | + + + | Marital Status | | + + + | Rastafari Affiliation | Unknown | + + + | Race | White | + + + | Ethnic Group | Not or | + + + Author + + + | Author | [facility] | + + + | Organization | [facility] | + + + | [...] Team Providers + +------+ + | Care Pastry Baker Name | Role | Phone | + [...] Hole, | | 2005 | Visit | [facility] at | [address] | or Pseudohole of | | | | [address] [place] [address] | [facility], | Retina (Primary Dx) | | | | [address] | [place] [address] | | | | | Mailcode: [facility] | [phone] | | | | | [place], [place] | | | | | | [address] | | | | | | [phone] | | | +--------+---------+ + + + [...] given. Daniel Carbajal MD, PhD Retina Fellow, [facility] 04/07/2006 documented in this en counter Plan of Treatment Not on filedocumented as of this encounter Visit Diagnoses + + | Diagnosis | + + | Macular cyst, hole, or pseudohole of retina - Primary | + + documented in this encounter"
--- OUTSIDE RECORDS SUMMARY | ~2019-07-28 | XMS | Encounter Summary ---
Demographics + + + | Address | [address] | | | [place] [address] | + + + | Home Phone | | + + + | Preferred Language | Unknown | + + + | Marital Status | | + + + | Synagogue Affiliation | Unknown | + + + [...] Team Providers + +------+ + | Care Newspaper Journalist Name | Role | Phone | + [...] | Transcriptions | + + | Interface, Production Analyst In - 04/21/2006 2:05 AM PDT | | [id number] | | [id number] NATALI[place] Kincaid [id number] | | | | Date: 04/06/2006 | | | | Attending Surgeon: Iraida Truong M.D. | | | | Coating Manager(s): Daniel Carbajal M.D. | | | | [...] | | JTS / HS | | [id number] / [id number] / [id number] / [id number] | | | | | | | | | | | | Electronically signed by Elie Truong 04-20-2006 04:43:10 PM | + + documented in this encounter Visit Diagnoses Not on filedocumented in this encounter"
--- OUTSIDE RECORDS SUMMARY | ~2019-07-28 | XMS | Encounter Summary ---
Demographics + + + | Address | [address] | | | [place] [address] | + + + | Home Phone [...] Providers + +------+ + | Care Sales Counselor Name | Role | Phone | + [...] Glaucoma | | 2005 | Visit | [facility] at | [address] | with Ocular | | | | [address] | [place] [address] [place], | Hypertension; | | | | [address] | [place] [address] | Macular Cyst, Hole, | | | | Mailcode: [facility] | [phone] | or Pseudohole of | | | | [place], [place] | | Retina | | | | [address] | | | | | | [phone] | | | +--------+---------+ + + + [...]
--- OUTSIDE RECORDS SUMMARY | ~2019-07-28 | XMS | Clinical Summary ---
Demographics + + + | Address | [address] | | | [place] [address] | + + + | Home Phone | | + + + | Preferred Language | Unknown | + + + | Marital Status | | + + + | Lutheran Affiliation | 1077 | + + + | Race | Unknown | + + + | Ethnic Group | Unknown | + + + Author + + + | Author | [facility] | | | and [place] | + + + | Organization | [facility] | | | and [place] [...] [place] | | | | | [address] | | + + + + + | Radha Diaz | NIDHI | Unknown | | + + + + + Care Team Providers + +------+ + | Care Dough Puncher Name | Role | Phone | + [...] + + + + + | Tiotropium [place] | Hives, Rash | Low | 08/05/20 [...] + + | Coronary artery disease involving [place] coronary artery of | 10/17/2017 | | [place] heart without angina pectoris | | + + + + + | Overview: Overview: | | Added automatically from request for surgery [id number] | + + + + + | [...] of | | | | | | [place] coronary | | | | | | artery without | | | | | | angina pectoris; | | | | | | Occlusion and | | | | | | stenosis of | | | | | | bilateral carotid | | | | | | arteries; Peripheral | | | | | | vascular disease | | | | | | ([facility]) | +--------+ + + + + from [...] | Visit | | MD Emre [address] | | | | | | [facility] | | | | | | [place] [address] | | | | | | [phone] | | | | | | | [...] | + +------+------+ +--------+--------+--------+ | Xgrft Vascu-Guard [facility] 0.8x8 | | | MONIKA | | 02/14/ | VG-010 | | - [id number]: Qty: 1 | | | BIOSCIENCE | [...] +--------+ +---------+--------+ | MEDICARE | MEDICA | [id number] | 04/08/20 | [phone] | | Medica | | | RE | | 10-Pre | 5 | | re | | | PART A | | sent | | | | | | AND B | | | | | | + +--------+ +--------+ +---------+--------+ | INDIVIDUAL ASSURANCE | INDIVI | [id number] | 05/09/20 | | | Indemn | [...] | | al/Fam | | 1945 | [phone] | [place] | | | [place] | | | 5 (Home) | [id number] | + +--------+ +--------+ + + Advance Directives Patient has advance care planning documents on file. For more information, please contact:[facility] / [place] [address]
--- OUTSIDE RECORDS SUMMARY | ~2019-07-28 | XMS | Encounter Summary ---
Demographics + + + | Address | [address] | | | [place] [address] | + + + | Home Phone | | + + + | Preferred Language | Unknown | + + + | Marital Status | | + + + | Jainism Affiliation | Unknown | + + + | Race | White | + + + | Ethnic Group | Not or | + + + Author + + + | Author | [facility] | + + + | Organization | [facility] | + + + | [...] Team Providers + +------+ + | Care Floor Covering Installer Name | Role | Phone | + [...] Activity | [address] | [address] | | | | | [address] Mailcode: [id number] | [place] [address] [place], | | | | | [place], [place] | [place] [address] | | | | | [address] | [phone] | | | | | [phone] | | | +--------+ + + + [...]
--- OUTSIDE RECORDS SUMMARY | ~2019-07-28 | XMS | Encounter Summary ---
Demographics + + + | Address | [address] | | | [place] [address] | + + + | Home Phone | | + + + | Preferred Language | Unknown | + + + | Marital Status | | + + + | Christianity Affiliation | Unknown | + + + | Race | White | + + + | Ethnic Group | Not or | + + + Author + + + | Author | [facility] | + + + | Organization | [facility] | + + + | Address [...] Team Providers + +------+ + | Care Facility Practice Specialist Name | Role | Phone | + +------+ + | Rad London DO | PCP | | + +------+ + Encounter Details +--------+ + + + + | Date | Type | Department | Care Team | Description | +--------+ + + + + | 04/06/ | Hospital | Registration 3181 | Elei Truong | | | 2005 | Activity | [address] | [address] | | | | | Rd Mailcode: [address] | [address] [address] [place], | | | | | [place], [place] | [place] [address] | | | | | [address] | [phone] | | | | | [phone] | | | +--------+ + + + [...]
--- OUTSIDE RECORDS SUMMARY | ~2019-07-28 | XMS | Encounter Summary ---
Demographics + + + | Address | [address] | | | [place] [address] | + + + | Home Phone | | + + + | Preferred Language | Unknown | + + + | Marital Status | | + + + | Adventist Affiliation | Unknown | + + + | Race | White | + + + | Ethnic Group | Not or | + + + Author + + + | Author | [facility] | + + + | Organization | [facility] | + + + | [...] Team Providers + +------+ + | Care Endless Bed Drum Sander Name | Role | Phone | + +------+ + PCP | Unavailable | + +------+ + Encounter Details +--------+ + + + + | Date | Type | Department | Care Team | Description | +--------+ + + + + | 04/17/ | Telephone | [facility] | Daniel Carbajal | | | 2005 | | [facility] at | G | | | | | [address] | | | | | | [address] | | | | | | Mailcode: [address] | | | | | | [place], [place] | | | | | | [address] | | | | | | [phone] | | | +--------+ + + + [...]
--- OUTSIDE RECORDS SUMMARY | ~2019-07-28 | XMS | Encounter Summary ---
Demographics + + + | Address | [address] | | | [place] [address] | + + + | Home Phone | | + + + | Preferred Language | Unknown | + + + | Marital Status | | + + + | Orthodox Affiliation | Unknown | + + + [...] Team Providers + +------+ + | Care Civilian Technician Name | Role | Phone | + [...] Hole, | | 2005 | Visit | [facility] at | [address] | or Pseudohole of | | | | [address] | [facility] | Retina (Primary Dx) | | | | [address] | [place] [address] | | | | | Mailcode: [facility] | [phone] | | | | | [place], [place] | | | | | | [address] | | | | | | [phone] | | | +--------+---------+ + + + [...]
--- OUTSIDE RECORDS SUMMARY | ~2019-07-28 | XMS | Encounter Summary ---
Demographics + + + | Address | [address] | | | [place] [address] | + + + | Home Phone | | + + + | Preferred Language | Unknown | + + + | Marital Status | | + + + | Mormon Affiliation | Unknown | + + + | Race | White | + + + | Ethnic Group | Not or | + + + Author + + + | Author | [facility] | + + + | Organization | [facility] | + + + | [...] Team Providers + +------+ + | Care Brusher Warp Name | Role | Phone | + +------+ + PCP | Unavailable | + +------+ + Encounter Details +--------+ + + + + | Date | Type | Department | Care Team | Description | +--------+ + + + + | 04/17/ | Telephone | [facility] | Daniel Carbajal | | | 2005 | | [facility] at | G | | | | | [address] | | | | | | [address] | | | | | | Mailcode: [address] | | | | | | [place], [place] | | | | | | [address] | | | | | | [phone] | | | +--------+ + + + [...]
--- OUTSIDE RECORDS SUMMARY | ~2019-07-28 | XMS | Clinical Summary ---
Demographics + + + | Address | [address] | | | [place] [address] | + + + | Home Phone | | + + + | Preferred Language | Unknown | + + + | Marital Status | | + + + | Sabianist Affiliation | Unknown | + + + | Race | White | + + + | Ethnic Group | Not or | + + + Author + + + | Author | [facility] | + + + | Organization | [facility] | + + + | Address | [...] Team Providers + +------+ + | Care Fisher Trawl Net Name | Role | Phone | + +------+ + | Rad London DO | PCP | | + +------+ + Source Comments RADHA is fully live on both EpicCare Ambulatory and EpicCare InPatient.[facility] Allergies + [...]
--- OUTSIDE RECORDS SUMMARY | ~2019-07-28 | XMS | Encounter Summary ---
Demographics + + + | Address | [address] | | | [place] [address] | + + + | Home Phone | | + + + | Preferred Language | Unknown | + + + | Marital Status | | + + + | Gnosticism Affiliation | Unknown | + + + [...] Team Providers + +------+ + | Care Mirror Framer Name | Role | Phone | + [...] Hole, | | 2006 | Visit | [facility] at | [address] | or Pseudohole of | | | | [address] | [place], | Retina (Primary Dx) | | | | [address] | [place] [address] | | | | | Mailcode: [facility] | [phone] | | | | | [place], [place] | | | | | | [address] | | | | | | [phone] | | | +--------+---------+ + + + [...] Tobacco Use: No Drives: Yes 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
[~2019-07-28 11:34] MED LIST: ALBUTEROL2.5 MG/3 M INH; ASPIRIN EC81 MG PO; CALCIUM500 MG PO; CALCIUM600 MG PO; CLOPIDOGREL75 MG PO; DAILY MULTIPLE1 EACH PO; ESTRING1 EACH VAGINAL; FISH OIL 1,0001 EAC5 PO; FLOVENT DISKU250 MCG INH; FLUTICASONE PRO16 GM NS; HYDROCHLOROTH12.5 MG PO; LEVOTHYROXINE100 MCG PO; LOSARTAN POTAS100 MG PO; MUCINEX600 MG PO; NAC600 MG PO; OSTEOPOROSIS MED; PROAIR HFA8.5 GM INH; RED YEAST RICE600 MG PO; TRAVATAN Z5 ML OU; TYLENOL EXTRA500 MG PO; ZEPHREX-D30 MG PO; ZYRTEC10 MG PO; [UNRECOGNIZED DRUG - OTHER]
[2019-07-28] MEDS ORDERED: PRAVASTATIN SOD20 MG PO (11:52)
[2019-07-28] MEDS ORDERED: METOPROLOL SUCC50 MG PO (11:53)
[2019-07-28] MEDS ORDERED: ISOSORBIDE MONO30 MG PO (12:08)
[2019-07-28] MEDS ORDERED: CIPROFLOXACIN250 MG PO (12:11)
--- NOTE | 2019-07-28 14:40 | NUR ---
PT ARRIVED TO ROOM 120 ON STRETCHER AND TRANSFERS SELF TO HOSPITAL BED WITH ONLY SBA. VSS, PT ASSESSMENT COMPLETED AND PT SHOWING NO ADVERSE S/SX'S OF NEUROLOGICAL IMPAIRMENT OTHER THAN SOME SLIGHT GENERALIZED WEEKNESS. PT IS ALERT AND ORIENTED WITH CLEAR SPEECH. PT AMBULATES TO BATHROOM WITH FWW AND BACK TO BED WITH SBA. PT CALLS APPROPRIATLY. CALL LIGHT AND FRESH H2O IN REACH. NO FURTHER NEEDS OR CONCERNS VOICED. PT'S BROUGHT HOME EYE DROPS WHICH WERE SENT TO PHARMACY FOR VERIFICATION.
[2019-07-28] MEDS ORDERED: FLOVENT HFA12 G1 INH (14:53)
--- NOTE | 2019-07-28 14:57 | NUR ---
Medications reconciled using pharmacy records and patient interview
--- NOTE | 2019-07-28 17:37 | NUR ---
PT SITTING UP IN CHAIR, EATING BREAKFAST. PT ALERT AND ORIENTED. SPEECH CLEAR. CALL LIGHT AND H2O IN REACH. NO NEW NEURO S/SX'S REPORTED OR OBSERVED. PT REQUESTED TO TAKE PRAVASTATIN AT 2100 INSTEAD OF RIGHT NOW THIS IS HOW SHE TAKES IT AT HOME AND WOULD LIKE TO STAY ON SAME SCHEDULE. RONALD,PHARMACIST NOTIFIED OF PT'S REQUEST AND AGREES TO RETIME MEDICATION. NO FURTHER NEEDS OR CONCERNS VOCIED.
--- NOTE | 2019-07-28 17:37 | NUR ---
PT SITTING UP IN CHAIR, EATING DINNER. PT ALERT AND ORIENTED. SPEECH CLEAR. CALL LIGHT AND H2O IN REACH. NO NEW NEURO S/SX'S REPORTED OR OBSERVED. PT REQUESTED TO TAKE PRAVASTATIN AT 2100 INSTEAD OF RIGHT NOW THIS IS HOW SHE TAKES IT AT HOME AND WOULD LIKE TO STAY ON SAME SCHEDULE. RONALD,PHARMACIST NOTIFIED OF PT'S REQUEST AND AGREES TO RETIME MEDICATION. NO FURTHER NEEDS OR CONCERNS VOCIED.
--- NOTE | 2019-07-28 19:25 | NUR ---
SHIFT REPORT RECIEVED FROM ILIA FRANCOIS. IV CDI, WNL. A&OX3. SPEECH CLEAR. SCDs ON. BED ALARM ON, CALL LIGHT IN REACH.
--- NOTE | 2019-07-28 19:59 | NUR ---
ROUNDED CHARGE. PATIENT IS RESTING IN BED. PATIENT DENIES ANY COMMENTS, QUESTIONS OR CONCERNS. NO NEEDS NOTED. CALL LIGHT IN REACH.
--- NOTE | 2019-07-28 21:08 | NUR ---
HELPED PT BACK FROM THE BATHROOM WITH HER FWW. VITALS DONE AND CHARTED. FRESH ICE WATER GIVEN. BEDSIDE TABLE AND CALL LIGHT IN REACH. 2 BLANKETS GIVEN PER PT REQUEST.
--- NOTE | 2019-07-28 22:00 | NUR ---
PT RESTING IN BED. ASSESSMENT AND SWALLOW SCREEN COMPLETED. CMS INTACT X4 AND WITHOUT WEAKNESS. PERRLA @ 3MM. A&O X4. GCS 15. SCDs ON. TELE ON, SR @ 78. IV FLUSHED AND SL. NO OTHER NEEDS AT THIS TIME. CALL LIGHT IN REACH.
--- NOTE | 2019-07-28 23:47 | NUR ---
PT RESTING IN BED, EYES CLOSED. SCDs ON. RR 16, EVEN, UNLABORED. CALL LIGHT IN REACH.
--- NOTE | 2019-07-29 01:52 | NUR ---
PT CALLS TO USE BR. PT UP TO BR AND BACK TO BED, SBA. VS AND I&O COMPLETED. PT PROVIDED EYE MASK. IV CDI, WNL, SL. PT TAKING BREAK FROM SCDs. NO FURTHER NEEDS AT THIS TIME. CALL LIGHT IN REACH.
--- NOTE | 2019-07-29 03:17 | NUR ---
CALL LIGHT ANSWERED, SBA WITH FWW TO RESTROOM FOR VOID AND BACK TO BED. GAIT STEADY. BARRIER CREAM APPLIED BY PT. CALL LIGHT IN REACH. LIGHTS OFF IN ROOM.
--- NOTE | 2019-07-29 03:48 | NUR ---
PT RESTING IN ROOM, EYE COVER ON. PT WAKES TO SOUND OF DOOR OPENING. PT SATES SHE IS "RESTING BUT NO SLEEP." NO NEEDS AT THIS TIME. CALL LIGHT IN REACH.
--- NOTE | 2019-07-29 06:16 | NUR ---
HELPED PT TO THE BATHROOM AND BACK TO BED WITH HER FWW. BEDSIDE TABLE AND CALL LIGHT IN REACH. PT NEEDS NOTHING MORE AT THIS TIME.
--- NOTE | 2019-07-29 06:40 | NUR ---
PT HAS SLEPT OFF AND ON THIS SHIFT. LEFT AC IV CDI, WNL, FLUSHED, SL. TOLERATED 2G LOW SODIUM DIET WELL. PT PASSED BEDSIDE SWALLOW EVALUATION WITH NO COUGHING OR SWALLOWING DIFFICULTY. VSS. TELE HAS BEEN SR TRENDING IN HIGH 60S-70S. A&O X4. PERRLA. GCS 15. STROKE EXAM UNREMARKABLE. FWW, SBA TO BR TOLERATED WELL.
--- NOTE | 2019-07-29 06:49 | NUR ---
PT AWAKE IN ROOM. SCHEDULED MED GIVEN. NEURO ASSESSMENT COMPLETED, WNL. NO OTHER NEEDS AT THIS TIME. CALL LIGHT IN REACH.
--- NOTE | 2019-07-29 09:37 | NUR ---
INITIAL ASSEMENT DONE, SPOKE WITH PATIENT WHO REPORTS MOST OF WEAKNESS FROM CVA RESOLVED AT THIS TIME, AND FEELING CLOSER TO BASELINE. PATIENT HAS HAD HX OF CVA IN PAST, AND HAS HOME HANDICAP ACCESSED, INCLUDING WALKIN SHOWER WITH CHAIR. ALSO HAS OWN WALKER AND SUPPORT OF MAIN CAREGIVER.
--- NOTE | 2019-07-29 10:51 | NUR ---
PT A&OX4, RESP EVEN AND NON LABORED. PT DENIES PAIN. ASSISTED PT TO BR THIS AM, SHE TOLERATED VERY WELL WITH STANDBY ASSIST/FWW. PT REPORTS SHE'S DOING WELL. NO NOTABLE WEAKNESS AT THIS TIME.
--- NOTE | 2019-07-29 11:28 | NUR ---
PT SITTING IN CHAIR, SEEMS ALERT AND ORIENTED. HER IS AT BS. SHE IS PLEASANT, SPEAKS WITH CLEAR SPEECH, WAITING FOR THE DR. SHE SAYS SHE IS READY FOR DC. PASSED ON TO PRISCILA ARAIZA THAT PT WOULD LIKE TO SEE EXTENDED A BLESSING, WILL FOLLOW NEEDED
--- NOTE | 2019-07-29 15:55 | EKG ---
[facility] [address] [facility] [place], [place] [address] Signed Sinus rhythm with 1st degree AV block Possible Left atrial enlargement Rightward axis Nonspecific ST abnormality Abnormal ECG When compared with ECG of 27-AUG-2018 10:50, Nonspecific T wave abnormality no longer evident in Anterior leads Confirmed by MICHAEL LUND DO ([id number]) on 07/29/2019 3:54:56 PM Electronically Signed By: MICHAEL LUND DO 07/29/19 1555 PATIENT NAME: ODALIS AN JESS Electrocardiogram DATE OF : 45 PHYSICIAN: MICHAEL LUND DO REPORT #: [id number] REPORT IS CONFIDENTIAL AND NOT TO BE RELEASED WITHOUT AUTHORIZATION
== END 2019-07-29 12:04 | disposition home or self-care (01) | DRG 66 ==
LOC: ED 11:34 → MS 14:08
PROVIDERS: ADMIT Student in an Organized Health Care Education/Training Program
DX: I63.9 Cerebral infarction, unspecified (principal); R47.01 Aphasia; I25.10 Atherosclerotic heart disease of native coronary artery without angina pectoris; E03.9 Hypothyroidism, unspecified; I65.22 Occlusion and stenosis of left carotid artery; I10 Essential (primary) hypertension; E78.5 Hyperlipidemia, unspecified; R29.704 NIHSS score 4; J44.9 Chronic obstructive pulmonary disease, unspecified; H40.9 Unspecified glaucoma; Z88.0 Allergy status to penicillin; Z88.8 Allergy status to other drugs, medicaments and biological substances; Z95.1 Presence of aortocoronary bypass graft; Z79.02 Long term (current) use of antithrombotics/antiplatelets; Z79.82 Long term (current) use of aspirin; Z79.51 Long term (current) use of inhaled steroids; Z79.899 Other long term (current) drug therapy; Z86.73 Personal history of transient ischemic attack (TIA), and cerebral infarction without residual deficits
CPT/HCPCS: 51701; 70450; 70496; 70498; 71045; 80053; 80061; 81001; 83036; 84484; 85025; 85610; 85730; 93005; 93010; 97161; 97165; 99285-25

== ENCOUNTER 2021-08-13 15:00 | Inpatient (IN) | payer MEDICARE, OTHER ==
[~2021-08-13] VITALS: Ht 165.1 cm; Wt 70.6 kg
[~2021-08-13 15:00] MED LIST changes: +CIPROFLOXACIN250 MG PO; +ISOSORBIDE MONO30 MG PO; +METOPROLOL SUCC50 MG PO; +PRAVASTATIN SOD20 MG PO
[2021-08-13] MEDS ORDERED: ESTRING1 EACH VAGINAL (15:43)
[2021-08-13] MEDS ORDERED: AMLODIPINE BESYL5 MG PO (15:43)
--- NOTE | 2021-08-13 19:33 | NUR ---
report from isaias at this time.
--- NOTE | 2021-08-13 20:22 | NUR ---
PT ARRIVES TO THE FLOOR VIA STRETCHER WITH . PT ABLE TO STAND AND TRANSFER TO THE BED. ADMISSION PROCESS COMPLETE. PT AND PRIENTED TO ROOM AND POC FOR THIS SHIFT. DIANAICH BOX ORDERED. PT REPORTS HEADACHE, TYLENOL ADMINISTERED PRN. PT DENIES FURTHER NEEDS OR QUESTIONS AT THIS TIME. CALL LIGHT IN REACH, BED ALARM ACTIVE.
--- NOTE | 2021-08-13 21:20 | NUR ---
PT SITTING UP IN BED ALERT AND ORIENTED. NO DISTRESS NOTED. PT REPORTS NEED TO USE BATHROOM. ONE PERSON ASSIST WITH FWW, PT TOLERATED ACTIVITY WELL STEADY GAIT, NO NOTED WEAKNESS UNILATERALLY.
--- NOTE | 2021-08-13 22:15 | NUR ---
IN TO ASSIST TO TOILET, PT ADLIB WITH FWW, BACK TO BED, NO FURTHER NEEDS
--- NOTE | 2021-08-13 22:17 | NUR ---
PT UP TO BATHROOM TO VOID, REPORTS SHE IS READY FOR SLEEP, ASSESSMENT COMPLETE. NOTIFIED PT I WILL BE IN AROUND 0200 TO TAKE V/S AND COMPLETE ANOTHER ASSESSMENT. CALL LIGHT IN REACH. CPAP AT BEDSIDE PT PLACED. NO COMCERNS OR REQUESTS AT THIS TIME.
--- NOTE | 2021-08-14 02:13 | NUR ---
V/S AND NEURO ASSESSMENT COMPLETE, NO NEW SYMPTOMS/DEFICITS.
--- NOTE | 2021-08-14 02:25 | NUR ---
PT UP TO VOID AND THEN BACK TO BED, NO FURTHER NEEDS AT THIS TIME
--- NOTE | 2021-08-14 03:16 | NUR ---
PT CALLED TO REPORT SHE IS HAVING A HEADACHE 8/10 WHILE SUPINE WITH CPAP IN, WHEN SHE SET THE BED UP SHE SAID IT WAS GETTING BETTER, TYLENOL PRN GIVEN, PT UP TO BATHROOM TO ATTEMPT BM. NO NEW DEFICITS NOTED, PT AMBULATED WELL STAND BY ASSIST WITH FWW. PT HAS FWW AT SHE USES OCCASSIONALLY
--- NOTE | 2021-08-14 03:21 | NUR ---
ASSISTED PT BACK FROM THE TOILET
--- NOTE | 2021-08-14 04:18 | NUR ---
PT ADMITTED FROM ED AND START OF HEART COORDINATOR. SHE HAS BEEN UP TO BATHROOM FREQUENTLY WITH STANDBY ASSIST WITH FWW. SHE SCORED A 2 ON NIHS ON ADMIT. ON DEFICIT ON ASSESSMENT IS VERY SLIGHT RIGHT FACIAL DROOP NOTED AT RIGHT CORNER ON MOUTH/LIP. SHE HAS BEED ADMINISTERED TYLENOL PRN X2 FOR HEADACHE. B/P HAS STABALIZED. NO OTHER CONCERNS PT HAS USED PERSONAL CPAP WHILE SLEEPING OVER NIGHT. CALLS APPROPRIATE FOR ASSISTANCE.
--- NOTE | 2021-08-14 06:42 | NUR ---
ROUNDING IN PT ROOM, AM ASSESSMENT COMPLETE, NO NEW DEFICITS, NO FACIAL DROOP NOTED THIS AM. V/S STABLE
--- NOTE | 2021-08-14 07:20 | NUR ---
this rn received report from bart mares. pt using cpap at this time and appears to be resting comfortably with respirations noted
[2021-08-14] MEDS ORDERED: LATANOPROST2.5 ML OU (07:22)
[2021-08-14] MEDS ORDERED: HYDROCHLOROTHIA25 MG PO (07:24)
--- NOTE | 2021-08-14 07:57 | NUR ---
OPENED BLINDS, UPDATED WHITE BOARD. PT ACCEPTED WARM WASHCLOTH FOR FACE. PT SAYS THEY WILL DO THIER OWN ORAL CARE AFTER BREAKFAST. CALL LIGHT WITHIN REACH, NO FURTHER NEEDS AT THIS TIME.
--- NOTE | 2021-08-14 08:18 | NUR ---
ASSISTED PT TO CHAIR. CALL LIGHT WITHIN REACH, NO FURTHER NEEDS AT THIS TIME.
--- NOTE | 2021-08-14 08:30 | NUR ---
THIS RN IN PTS ROOM TO CHECK ON PT AND DO MORNING MEDS. PT SITTING UP IN CHAIR AND STATES THAT SHE GOT GREAT REST LAST NIGHT. PT REPORTS FEELING GOOD. THIS RN PERFORMED NEURO CHECK, ONLY THING TO NOTED IS A SLIGHT RIGHT FACIAL DROOP AT THE CORNER OF THE LIP AND SLIGHT DEIVAITON OF THE TONGUE FROM MIDLINE.
--- NOTE | 2021-08-14 09:13 | NUR ---
PT BRIGHT AND BUBBLY. RN NOTIFIED OF NO OUPUT THIS MORNING. CALL LIGHT WITHIN REACH, NO FURTHER NEEDS AT THIS TIME.
[2021-08-14] MEDS ORDERED: TRIAMCINOLONE A15 G1 TOP (09:35)
[2021-08-14] MEDS ORDERED: FLOVENT HFA12 G1 INH (09:36)
--- NOTE | 2021-08-14 09:36 | NUR ---
MED REC COMPLETE
--- NOTE | 2021-08-14 10:00 | NUR ---
THIS RN PROVIDED PT WITH WARM BLANKET FOR COMFORT. PT STILL UP TO CHAIR AT THIS TIME. PT ABLE TO VOID THIS AM.
--- NOTE | 2021-08-14 11:41 | NUR ---
CALL LIGHT ANSWERED. SBA WITH CANE TO RESTROOM TO WASH HANDS. BACK IN CHAIR. CALL LIGHT IN REACH. NO ADDITIONAL NEEDS.
--- NOTE | 2021-08-14 12:31 | NUR ---
this rn in pts room to sba pt back to chair from restroom. pt states that she is doing well this afternoon. neuro exam has no changes from this am- still slight right facial droop at the corner of the lips pt requesting warm blanket for her legs, this provided to her. pt has no other concerns at this time.
--- NOTE | 2021-08-14 13:36 | NUR ---
PT IN CHAIR. IN ROOM. CALL LIGHT WITHIN REACH, NO FURTHER NEEDS AT THIS TIME.
--- NOTE | 2021-08-14 15:30 | NUR ---
THIS RN IN PTS ROOM TO CHECK ON PT. PT BACK IN BED WITH CPAP ON. PT STATES THAT SHE THINKS SHE MORE SOCIAL TODAY AND THAT SHE SAT IN THE CHAIR FOR QUITE AWAHILE. PT REPORTS THAT SHE NEEDS NOTHING AT THIS TIME AND CALL LIGHT WITHIN REACH
--- NOTE | 2021-08-14 15:44 | NUR ---
PT ORIGINALLY WANTED SHOWER THIS AFTERNOON. WENT IN TO PREP BATHROOM AND ASSIST PT, AND THEY ARE NOW REQUESTING TO DELAY SHOWER. WILL RETURN AT THE REQUESTED TIME TO ASSIST PT WITH SHOWER. CALL LIGHT WITHIN REACH, NO FURTHER NEEDS AT THIS TIME
--- NOTE | 2021-08-14 16:57 | NUR ---
PREPPED BR FOR SHOWER. WRAPPED PT'S IV SITE. PT INDEPENDENT IN SHOWER. CHANGED LINENS. ASSISTED PT BACK TO CHAIR. CALL LIGHT WITHIN REACH, NO FURTHER NEEDS AT THIS MOMENT.
--- NOTE | 2021-08-14 17:40 | NUR ---
this rn in pts room to give pt evenign meds. pt sitting up to chair, had a shower. pt states that she is feeling well this eveing. neuro check unchanged at this time. pts in room and pt and him are cleaning pts cpap machine.
--- NOTE | 2021-08-14 19:40 | NUR ---
REPORT RECEIVED FROM DAY SHIFT RN. PT SITTING IN RECLINER ALERT AND ORIENTED. DENIES NEEDS AT THIS TIME. WHITE BOARD UPDATED. CALL LIGHT IN REACH.
--- NOTE | 2021-08-14 20:41 | NUR ---
EVENING ASSESSMENT COMPLETE. SCHEDULED MEDS ADMINISTERED PER EMAR. PT DENIES PAIN OR NAUSEA. REPORTS INTERMITTENT DIZZINESS. NEURO ASSESSMENT DONE. SLIGHT RIGHT FACIAL DROOP NOTED. PT DENIES HEADACHE OR VISION CHANGES. SBA WITH CANE TO BR. GAIT STEADY. BACK TO BED, FERCHO WELL. TELE #[address] NSR[address] HR 60'S. PT ENCOURAGED TO USE NURSE CALL LIGHT FOR OOB. PT VERBALIZES UNDERSTANDING. PT DENIES QUESTIONS OR CONCERNS. CALL LIGHT IN REACH.
--- NOTE | 2021-08-14 23:38 | NUR ---
PT RESTING IN BED WITH EYES CLOSED. RESPIRATIONS EVEN. HOME CPAP IN PLACE. TELE # 6 HR 50-60'S. NO APPARENT DISTRESS.
--- NOTE | 2021-08-15 00:44 | NUR ---
CALL LIGHT ANSWERED. PT UP TO BR WITH SBA AND CANE TO VOID. AT SINK TO WASH HANDS. BACK TO BED, FERCHO WELL. DENIES FEELING DIZZY WITH AMB. HOME CPAP IN PLACE. NO FURTHER NEEDS.
--- NOTE | 2021-08-15 02:45 | NUR ---
PT RESTING IN BED WITH EYES CLOSED. RESPIRATIONS EVEN. CPAP IN PLACE. NO APPARENT DISTRESS.
--- NOTE | 2021-08-15 04:01 | NUR ---
ANSWERED CALL LIGHT, PT UP TO BR 1P SBA WITH CANE. PT BACK IN BED, CALL LIGHT WITHIN REACH, BED ALARM ON. NO FURHTER ASSITANCE NEEDED AT THIS TIME.
--- NOTE | 2021-08-15 06:36 | NUR ---
VS AND I&O COMPLETE. SCHEDULED MEDS ADMINISTERED. UP TO BR WITH SBA AND CANE TO VOID. GAIT STEADY. BACK TO BED, FERCHO WELL. ASSESSMENT COMPLETE. NEURO CHECK WNL. RESIDUAL SLIGHT RIGHT FACIAL DROOP. PT DENIES FEELING DIZZY THIS AM. NO FURTHER NEEDS. CALL LIGHT IN REACH.
--- NOTE | 2021-08-15 07:30 | NUR ---
this rn received report from jami mares.
--- NOTE | 2021-08-15 08:00 | NUR ---
PT ACCEPTED WARM CLOTH FOR FACE. PT INDEPENDENT WITH ORAL CARE. WHITE BOARD UPDATED, CALL LIGHT WTIHIN REACH. NO FURTHER NEEDS AT THIS TIME.
--- NOTE | 2021-08-15 08:31 | NUR ---
PT UP IN CHAIR FOR BREAKFAST. CALL LIGHT WITHIN REACH. NO FURTHER NEEDS AT THIS TIME
--- NOTE | 2021-08-15 08:58 | NUR ---
PT SEEMS TO BE WALKING WITH GREATER EASE. THIS OIL LEASE BROKER SBA PT WALKED TO BR AND THEN BACK TO THE CHAIR. CALL LIGHT IN REACH, NO FURTHER NEEDS AT THIS MOMENT
--- NOTE | 2021-08-15 08:59 | NUR ---
PT REFUSED SHOWER, RN NOTIFIED
--- NOTE | 2021-08-15 09:15 | NUR ---
pt up working with physical therapy
--- NOTE | 2021-08-15 09:55 | NUR ---
this rn in pts room to give pt morning meds. pt states that she is doing well this am and has no complaints. pts neuro check is unchanged from yesterday at this time.
--- NOTE | 2021-08-15 10:43 | NUR ---
this rn back in pts room to give pt bp meds per md. pts at bedside. both asking when pt to be discharged.
[2021-08-15] MEDS ORDERED: PRAVASTATIN SOD20 MG PO (11:42)
--- NOTE | 2021-08-16 13:39 | EKG ---
[facility] [address] [facility] [place] [address] Signed Sinus rhythm with 1st degree AV block Rightward axis Borderline ECG When compared with ECG of 28-JUL-2019 12:06, No significant change was found Confirmed by PRINCESS TEJADA MD ([id number]) on 08/16/2021 1:39:17 PM Electronically Signed By: PRINCESS TEJADA MD 08/16/21 1339 PATIENT NAME: ODALIS AN Electrocardiogram DATE OF : 45 PHYSICIAN: PRINCESS TEJADA MD REPORT #: [id number] REPORT IS CONFIDENTIAL AND NOT TO BE RELEASED WITHOUT AUTHORIZATION
== END 2021-08-15 13:15 | disposition home or self-care (01) | DRG 65 ==
LOC: ED 15:00 → MS 18:50
PROVIDERS: ADMIT Internal Medicine; ATTEND Internal Medicine
DX: I63.89 Other cerebral infarction (principal); G81.91 Hemiplegia, unspecified affecting right dominant side; Z20.822 Contact with and (suspected) exposure to COVID-19; R29.810 Facial weakness; I25.10 Atherosclerotic heart disease of native coronary artery without angina pectoris; G47.33 Obstructive sleep apnea (adult) (pediatric); J44.9 Chronic obstructive pulmonary disease, unspecified; E78.5 Hyperlipidemia, unspecified; I10 Essential (primary) hypertension; E03.9 Hypothyroidism, unspecified; Z95.1 Presence of aortocoronary bypass graft; Z86.73 Personal history of transient ischemic attack (TIA), and cerebral infarction without residual deficits; Z87.891 Personal history of nicotine dependence; Z88.0 Allergy status to penicillin; Z88.8 Allergy status to other drugs, medicaments and biological substances; Z79.899 Other long term (current) drug therapy; Z88.1 Allergy status to other antibiotic agents
CPT/HCPCS: 51702; 70450; 70496; 70498; 71045; 80053; 80061; 81001; 83036; 84484; 85025; 85610; 85730; 93005; 93010; 97116; 97161; 97530; 99285-25; C9803; J1650; Q9967; U0003

== ENCOUNTER 2022-10-25 08:47 | Day surgery (SDC) | payer MEDICARE, OTHER ==
[~2022-10-25] VITALS: Ht 165.1 cm; Wt 70.0 kg
--- NOTE | ~2022-10-25 | OR ---
[facility] [address] [place], [place] [address] Draft DATE OF OPERATION: 10/25/2022 SURGEON: Catherine Garcia MD PREOPERATIVE DIAGNOSES: 1. History of tubular adenoma five years ago. 2. Episodic constipation with hemorrhoids. POSTOPERATIVE DIAGNOSES: 1. Sigmoid diverticulosis. 2. Internal hemorrhoids. 3. Linear firm polypoid lesion, right colon. PROCEDURES: 1. Total colonoscopy to cecum with mucosal lift application and Endomark tattoo injection with hot morcellation polypectomy. 2. Application of hemoclip x2. ANESTHESIA: Intravenous sedation, propofol infusion, Derian Espinoza CRNA INDICATIONS: This 77-year-old white woman is a patient of Mercedez Nevarez DNP. She is known to me from the past having undergone colonoscopy five years ago and found to have a tubular adenoma. She has symptoms of constipation and episodic hemorrhoids, by this she means protrusion and possibly some bleeding. She has no family history of colon cancer. 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 Plavix has been withheld only two days. Given those confounding issues, anticipating surveillance colonoscopy at this time. The risks of bleeding, infection, perforation, and so forth were reviewed in detail. She understands and wished to proceed. FINDINGS: The prep was quite good. Complete colonoscopy was undertaken of cecum without question. She had numerous diverticula of the sigmoid and left colon and internal hemorrhoids x1. In the right colon, there was a linear shaped fullness, uncertain initially if adenomatous, but ultimately considered likely adenoma, this was resected with mucosal lift technique using a hot morcellator rather than snare as usual and application of hemoclips to the site given her Plavix use of recent times. Incomplete excision is PATIENT NAME: ODALIS AN OPERATIVE REPORT DATE OF : 45 REPORT #: [id number] PHYSICIAN: CATHERINE GARCIA MD PCP: MERCEDEZ NEVAREZ REPORT IS CONFIDENTIAL AND NOT TO BE RELEASED WITHOUT AUTHORIZATION [facility] [address] [place], [place] [address] Draft noted most likely. DESCRIPTION OF PROCEDURE: The patient was brought to the endoscopy suite and placed in lateral decubitus position given intravenous sedation to the point of slurred speech and nystagmus. Full cardiopulmonary monitoring was maintained by the toll line repairer. Digital rectal exam was performed and was normal. An Olympus video colonoscope was passed into the rectum and manipulated throughout the colon noting diverticular change of the sigmoid and left colon. The scope was ultimately passed to the cecum. The ileocecal valve and appendiceal orifice were normal. The scope was withdrawn and examination showed area of fullness and a mucosal fold, initially uncertain as to the possibility of adenoma. Narrow band imaging was not particularly useful in determining this. Full examination showed it probably to represent an adenoma. Given its location, her underlying incomplete anticoagulation with Plavix and so forth, the mucosal lift technique was deemed most appropriate. Using a sclerotherapy needle injection beneath the area in question was injected with tattoo dye. A hot snare polypectomy was attempted, but could never grasp the polyp in a reasonable way to allow for excision. On that basis, a hot morcellation device was used. Multiple biopsies were taken of the lesion generally ablating it. There was no untoward bleeding; however, based on her ongoing Plavix use, it was deemed advisable to apply hemoclips and two were applied to the area of transection. The scope was then withdrawn, remaining examination undertaken showing only diverticulosis and internal hemorrhoids on retroflexed view. The scope was removed, the patient taken to the recovery room in good condition. CONCLUDING DIAGNOSIS: Probable right-sided colonic polyp. PLAN: If the pathology of the resected specimen is adenoma, I would recommend repeat in one year, fully off Plavix if clinically feasible. If negative, we would consider for repeat colonoscopy in two years' time or sooner if symptoms should develop. MD LESLEE Zapien/MODL /[id number] PATIENT NAME: ODALIS AN OPERATIVE REPORT DATE OF : 45 REPORT #: [id number] PHYSICIAN: CATHERINE GARCIA MD PCP: MERCEDEZ NEVAREZ REPORT IS CONFIDENTIAL AND NOT TO BE RELEASED WITHOUT AUTHORIZATION [facility] [address] [place] [id number] Draft cc: Mercedez Nevarez NP Copies: ~ PATIENT NAME: ODALIS AN OPERATIVE REPORT DATE OF : 45 REPORT #: [id number] PHYSICIAN: CATHERINE GARCIA MD PCP: MERCEDEZ NEVAREZ REPORT IS CONFIDENTIAL AND NOT TO BE RELEASED WITHOUT AUTHORIZATION
[~2022-10-25 08:47] MED LIST changes: +AMLODIPINE BESYL5 MG PO; +FLOVENT HFA12 G1 INH; +HYDROCHLOROTHIA25 MG PO; +LATANOPROST2.5 ML OU; +TRIAMCINOLONE A15 G1 TOP
[2022-10-25] MEDS ORDERED: FLOVENT DISKUS50 MCG INH (09:08)
--- NOTE | 2022-10-25 10:23 | NUR ---
WENT IN ROOM TO CHECK ON PT AND UPDATE HER ON DELAY OF HER PROCEDURE. ADVISED HER THAT PROCEDURE BEFORE HER IS TAKING LONGER THAN EXPECTED. SHE IS UNDERSTANDING. WARM BLANKETS AND SUMI HUGGER GIVEN. BROUGHT INTO ROOM FROM [facility].
--- NOTE | 2022-10-25 10:46 | NUR ---
ANSWERED CALL LIGHT PT NEEDED TO USE BATHROOM, SHE AMBULATED WITH CANE TO BATHROOM. PT TUCKED BACK INTO BED WITH BAIRHUGGER AND BLANKETS.
--- NOTE | 2022-10-25 12:05 | NUR ---
10/25/22 1205 Rosalie Ramirez 1156 PT TO PACU SLEEPING O2 IN PLACE VIA MASK.
--- NOTE | 2022-10-26 12:19 | PATH ---
[facility] [address] [place], [place] [address] Signed SPECIMEN(S): A ASCENDING/RIGHT COLON POLYP SPECIMEN SOURCE: A. ASCENDING/RIGHT COLON POLYP CLINICAL HISTORY: History of polyps. Dx: Divertic., internal hemorrhoids. FINAL PATHOLOGIC DIAGNOSIS: Ascending / right colon polyp: - Serrated polyp / adenoma (multiple fragments). JVR:[id number] MICROSCOPIC EXAMINATION: Histologic sections of all submitted blocks are examined by light microscopy. These findings, together with the gross examination, support the pathologic diagnosis. GROSS DESCRIPTION: The specimen, labeled and designated "Ricci, ascending/right colon polyp," is received in formalin and consists of multiple green soft tissue fragments, 0.1-0.2 cm. Entirely submitted in (A1). VB (under the direct supervision of a pathologist) The Gross Description was prepared using a voice recognition system. The report was reviewed for accuracy; however, sound-alike word errors, addition and/or deletions may occur. If there is any question about this report, please contact Client Services. PERFORMING LABORATORY: The technical component was performed by [facility], [address] [place] [id number] (CLIA# [id number]). Professional interpretation was performed by [facility], [address] [place] [id number] (CLIA#: [id number]). Diagnostician: Jacky Poe MD Pathologist Electronically Signed 10/26/2022 Copies: PATIENT NAME: ODALIS AN PATHOLOGY DATE OF : 45 REPORT #: [id number] PHYSICIAN: [facility]IA PATHOLOGY PCP: TIFFANY SWEET REPORT IS CONFIDENTIAL AND NOT TO BE RELEASED WITHOUT AUTHORIZATION [address] [address] Signed ~ PATIENT NAME: ODALIS AN PATHOLOGY DATE OF : 45 REPORT #: [id number] PHYSICIAN: NADIA PATHOLOGY PCP: TIFFANY SWEET REPORT IS CONFIDENTIAL AND NOT TO BE RELEASED WITHOUT AUTHORIZATION
== END 2022-10-25 12:50 | disposition home or self-care (01) ==
LOC: DS 08:47 → OPS 08:47 → DS 11:00 → OPS 12:50
PROVIDERS: ATTEND Surgery
PROC: 3E0H8KZ Introduction of Other Diagnostic Substance into Lower GI, Via Natural or Artificial Opening Endoscopic (ICD-10-PCS; 2022-10-25)
PROC: 0DBK8ZX Excision of Ascending Colon, Via Natural or Artificial Opening Endoscopic, Diagnostic (ICD-10-PCS; principal; 2022-10-25 11:00)
DX: D12.2 Benign neoplasm of ascending colon (principal); K57.30 Diverticulosis of large intestine without perforation or abscess without bleeding; K64.8 Other hemorrhoids; G45.9 Transient cerebral ischemic attack, unspecified; Z86.010 Personal history of colon polyps; Z95.1 Presence of aortocoronary bypass graft; Z98.890 Other specified postprocedural states; Z88.8 Allergy status to other drugs, medicaments and biological substances; Z79.899 Other long term (current) drug therapy
CPT/HCPCS: J2704

== ENCOUNTER 2024-04-28 17:39 | Emergency (ER) | payer MEDICARE, OTHER ==
[~2024-04-28] VITALS: Ht 165.1 cm; Wt 72.7 kg
[~2024-04-28 17:39] MED LIST changes: -AMLODIPINE BESYL5 MG PO; +AMLODIPINE BESYL5 MG PT; +BREO ELLIPTA I1 EACH INH; +FLOVENT DISKUS50 MCG INH
[2024-04-28] MEDS ORDERED: VAZALORE81 MG PT (17:48)
[2024-04-28] MEDS ORDERED: NEXLETOL180 MG PT (17:52)
[2024-04-28] MEDS ORDERED: CRESTOR40 MG PT (17:53)
[2024-04-28] MEDS ORDERED: TRAVATAN Z5 ML OPTH (17:54)
[2024-04-28] MEDS ORDERED: COUGH SYRU100 MG/5 M PT (17:56)
[2024-04-28] MEDS ORDERED: ONDANSETRON ODT8 MG PT (17:57)
[2024-04-28 20:10] VITALS: BP 156/69
== END 2024-04-28 20:10 | disposition home or self-care (01) ==
LOC: ED 17:39
DX: K94.23 Gastrostomy malfunction (principal); I10 Essential (primary) hypertension; J44.9 Chronic obstructive pulmonary disease, unspecified; Z87.891 Personal history of nicotine dependence; Z95.1 Presence of aortocoronary bypass graft; Z88.0 Allergy status to penicillin; Z88.8 Allergy status to other drugs, medicaments and biological substances; Z79.82 Long term (current) use of aspirin; Z79.890 Hormone replacement therapy; Z79.899 Other long term (current) drug therapy
CPT/HCPCS: 99283

== ENCOUNTER 2025-08-12 16:53 | Emergency (ER) | payer MEDICARE, OTHER ==
[~2025-08-12] VITALS: Ht 165.1 cm; Wt 73.9 kg
[~2025-08-12 16:53] MED LIST changes: +COUGH SYRU100 MG/5 M PT; +CRESTOR40 MG PT; +NEXLETOL180 MG PT; +ONDANSETRON ODT8 MG PT; +TRAVATAN Z5 ML OPTH; +VAZALORE81 MG PT
[2025-08-12 17:14] LABS: MCH 28.2 PG (25.6-32.2); MCHC 31.7 g/dL (32.2-35.5); MCV 88.8 fL (79.4-94.8); RBC 4.01 M/uL (3.93-5.22)
[2025-08-12 17:28] LABS: INR 1.04 (0.80-1.30); PROTIME 12.9 Sec (11.2-14.2)
[2025-08-12 17:32] LABS: ALT (SGPT) 18.0 U/L (14-59); AST (SGOT) 19.0 U/L (15-37); BASOPHILS, MANUAL DIFF 3; GLOMERULAR FILTRATION RATE,EST 44.0 mL/min (>60); LYMPHOCYTES, MANUAL DIFF 32; MONOCYTES, MANUAL DIFF 5; NEUTROPHILS, MANUAL DIFF 60; PROTEIN, TOTAL 6.9 g/dL (6.4-8.2); UREA NITROGEN 24.0 mg/dL (7-18)
[2025-08-12] MEDS ORDERED: LABETALOL HCL 20 MG/4 ML VIAL IV ONE ×2 (18:45→19:00)
[2025-08-12 21:20] VITALS: BP 138/56
--- NOTE | 2025-08-13 21:19 | EKG ---
[facility] [address] [facility] [place] [address] Signed Sinus rhythm with 1st degree AV block with premature atrial complexes with aberrant conduction Otherwise normal ECG When compared with ECG of 19-DEC-2023 10:47, aberrant conduction is now present Confirmed by Hank Ramos MD () on 08/13/2025 9:19:32 PM Electronically Signed By: HANK RAMOS MD 08/13/25 2119 PATIENT NAME: ODALIS AN Electrocardiogram DATE OF : 45 PHYSICIAN: HANK RAMOS MD REPORT #: [id number] REPORT IS CONFIDENTIAL AND NOT TO BE RELEASED WITHOUT AUTHORIZATION
== END 2025-08-12 21:20 | disposition short-term general hospital (02) ==
LOC: ED 16:53
PROVIDERS: Emergency Medicine
DX: I63.9 Cerebral infarction, unspecified (principal); J44.9 Chronic obstructive pulmonary disease, unspecified; I10 Essential (primary) hypertension; Z79.51 Long term (current) use of inhaled steroids; Z79.899 Other long term (current) drug therapy; Z88.8 Allergy status to other drugs, medicaments and biological substances; Z88.1 Allergy status to other antibiotic agents; Z88.0 Allergy status to penicillin; Z87.891 Personal history of nicotine dependence
CPT/HCPCS: 36415; 70450; 70496; 70498; 71045; 80053; 85025; 85610; 85730; 93005; 93010; 96374; 96376; 99291; 99292; Q3014